=== PATIENT | female | born 1995 | race Caucasian/White ===

== ENCOUNTER 2019-10-19 13:09 | Emergency (ER) | payer OTHER, SELFPAY ==
[2019-10-19 13:20] VITALS: BP 122/71; PULSE 106; RESP 16; TEMP 36.8; O2SAT 99
--- NOTE | 2019-10-19 13:27 | ED.URI ---
HPI - URI/Sore Throat General Chief Complaint: Upper Respiratory Infection Stated Complaint: Cough/sore throat/sinus drainage Time Seen by Provider: 10/19/19 13:27 Source: patient and RN notes reviewed Mode of arrival: ambulatory Limitations: no limitations History of Present Illness HPI Narrative: 23-year-old female who presents to [facility] care with complaints of sore throat, nasal congestion and drainage, come cough with highest temperature of 99.6F. Patient states that she has no shortness of breath or any wheezing noted, lungs noted to be clear to auscultation with SAO2 99% on room air.Patient denies any known exposure to strep or any sick contact, denies any recent travel. Patient states that she has been taking Nyquil cold and flu for her symptoms. Patient reports that she did not get a flu shot this year. MD elicited complaint: cough, sore throat, rhinorrhea and nasal congestion Pertinent past history: other (sinus problems and bronchitis) Onset (ago): day(s) (2) Consistency: constant Severity: moderate Pain scale (0-10): 5 Description of mucous: clear Able to tolerate fluids by mouth: Yes Exacerbating factors: swallowing Relieving factors: nothing Associated symptoms: rhinorrhea, nasal congestion, sore throat and cough Treatments prior to arrival: other (nyquil cold and flu) Related Data Home Medications Medication Instructions Recorded Confirmed drospirenone-ethinyl estradiol 1 tablet PO DAILY 10/19/19 10/19/19 [Enriqueta] Allergies Allergy/AdvReac Type Severity Reaction Status Date / Time amoxicillin Allergy Unknown HIVES Verified 10/19/19 15:06 Review of Systems Review of Systems: Narrative: CONSTITUTIONAL: Reprts highest temperature of 99.6F no chills, or sweats. EYES: Denies visual changes, redness, or discharge. ENT: Positive rhinorrhea, congestion, sore throat, no otalgia. CARDIOVASCULAR: Denies chest pain, palpitations, or edema. RESPIRATORY:Positive cough no dyspnea. GASTROINTESTINAL: Denies abdominal pain, nausea, vomiting, or diarrhea. GENITOURINARY: Denies dysuria or hematuria. SKIN: Denies rash or itching. MUSCULOSKELETAL: Denies back pain, joint pain, or myalgia. NEUROLOGIC: Denies headache, numbness, or weakness. PSYCHIATRIC: Denies anxiety or depression. All systems reviewed & are unremarkable except as noted in HPI and below PMFSH Past Medical History Medical History (Updated 10/21/19 @ 15:25 by Stephanie Snowden NP) Bronchitis Fracture, ankle Sinus problem Surgical History Surgical History (Updated 10/19/19 @ 13:35 by Stephanie Snowden NP) S/P wisdom tooth extraction Family History Family History Other Carcinoma of colon Depression Family history of arthritis Family history of heart disease in male family member before age 55 Social History Social History (Updated 10/21/19 @ 15:20 by Stephanie Snowden NP) Smoking status: Never smoker Alcohol intake: current Living arrangements: with family Gender identity (if verbalized by the patient): Female Comments At time of signature, agree with nursing past medical, surgical, social history. There is no relevant family history pertinent to the presenting complaint Exam Narrative: Exam Narrative: GENERAL: Well-appearing, well-nourished, and in no acute distress. HEAD: Normocephalic, atraumatic. EYES: PERRLA AND EOMI intact no nystagmus no eye drainage or redness ENT: nares red with clear rhinorrhea no epistaxis. Mucous membranes moist.TM's normal with good light reflex, thraoat red with no lesions or exudates no tonsil enlargement NECK: Supple.no lymphadenopathy CHEST: Clear to auscultation. No respiratory distress.cough, SAO2 99% on room air HEART: Regular rate and rhythm. No murmur heard. Normal peripheral pulses. ABDOMEN: Soft, nontender, nondistended, normal active bowel sounds. EXTREMITIES: Normal range of motion. No edema. SKIN: Warm, dry, no rash. NEURO: N
== END 2019-10-19 13:50 | disposition home or self-care (01) ==
PROVIDERS: Emergency Provider Registered Nurse; PCP Family Medicine Sports Medicine
DX: J06.9 Acute upper respiratory infection, unspecified (principal); J02.9 Acute pharyngitis, unspecified
CPT/HCPCS: 87081; 87880; 99213; G0463

== ENCOUNTER 2021-05-08 09:09 | Emergency (ER) | payer SELFPAY ==
[2021-05-08 09:25] VITALS: BP 105/73; PULSE 91; RESP 16; TEMP 36.7; O2SAT 100
--- NOTE | 2021-05-08 09:44 | ED.URI ---
HPI - URI/Sore Throat General Chief Complaint: Upper Respiratory Infection Stated Complaint: Eye Problem/ Chest Congestion Time Seen by Provider: 05/08/21 09:29 Source: patient and RN notes reviewed Mode of arrival: ambulatory Limitations: no limitations History of Present Illness HPI Narrative: Patient presents today complaining of 5-day history of chills, sweats, cough, congestion. She also reports redness to the bilateral eyes since yesterday with crusting since this morning. Denies fever, nausea, vomiting, diarrhea. She has been taking some Mucus Relief cough medicine as well as Tylenol with relief. MD elicited complaint: cough and nasal congestion Related Data Home Medications Medication Instructions Recorded Confirmed multivitamin 1 tablet PO DAILY 03/21/20 Allergies Allergy/AdvReac Type Severity Reaction Status Date / Time amoxicillin Allergy Unknown HIVES Verified 03/21/20 11:27 Review of Systems Review of Systems: CONSTITUTIONAL: Denies body aches, fever, chills, or sweats. EYES: Denies visual changes. + Bilateral eye redness and crusting ENT: Denies rhinorrhea, sore throat, or otalgia.+ Congestion CARDIOVASCULAR: Denies chest pain, palpitations, or edema. RESPIRATORY: Denies dyspnea. + Cough GASTROINTESTINAL: Denies abdominal pain, nausea, vomiting, or diarrhea. GENITOURINARY: Denies dysuria or hematuria. SKIN: Denies rash, itching, or wounds. MUSCULOSKELETAL: Denies back pain, joint pain, or myalgia. NEUROLOGIC: Denies headache, numbness, tingling, or weakness. PSYCH: Denies depression or anxiety. [facility] Past Medical History Medical History (Updated 05/08/21 @ 09:50 by Irais Darling, FELIBERTO, LETTY) Bronchitis Depression Fracture, ankle Sinus problem Vaginal delivery Surgical History Surgical History S/P wisdom tooth extraction Family History Family History Other Carcinoma of colon Depression Family history of arthritis Family history of heart disease in male family member before age 55 Social History Social History Smoking status: Never smoker Alcohol intake: current Gender identity (if verbalized by the patient): Female Comments At time of signature, I have reviewed and agree with nursing past medical, surgical, social and family history unless otherwise noted. Please see nursing chart for further information. There is no relevant family history pertinent to the presenting complaint Exam Narrative: GENERAL: Mildly ill-appearing, well-nourished, and in no acute distress. HEAD: Normocephalic, atraumatic. EYES: EOMI. PERRL. Bilateral mildly injected conjunctiva, right greater than left. No drainage or increased watering. ENT: Mucous membranes pink and moist. Nares congested. No rhinorrhea. TMs normal bilaterally. Throat normal with small amount of postnasal drainage. Uvula midline. NECK: Normal AROM. Supple. No lymphadenopathy. CHEST: No respiratory distress. Clear to auscultation. HEART: Regular rate and rhythm. No murmur appreciated. Normal peripheral pulses. EXTREMITIES: Normal range of motion. No edema. SKIN: Warm, dry, no rash. Capillary refill normal. Normal skin turgor. NEURO: No focal deficits. Alert and oriented x3. Gait steady. PSYCH: Normal affect. No signs of depression or anxiety. Course Vital Signs Vital signs: Vital Signs Temperature 98.1 F 05/08/21 09:25 Pulse Rate 91 05/08/21 09:25 Respiratory Rate 16 05/08/21 09:25 Blood Pressure 105/73 05/08/21 09:25 Pulse Oximetry 100 05/08/21 09:25 Temperature 98.1 F 05/08/21 09:25 Pulse Rate 91 05/08/21 09:25 Respiratory Rate 16 05/08/21 09:25 Blood Pressure 105/73 05/08/21 09:25 Pulse Oximetry 100 05/08/21 09:25 Reviewed MDM - URI/Sore Throat Differential Diagnosis Differential diagn
== END 2021-05-08 09:59 | disposition home or self-care (01) ==
PROVIDERS: Emergency Provider Nurse Practitioner
DX: J06.9 Acute upper respiratory infection, unspecified (principal)
CPT/HCPCS: 87081; 87880; 99213; G0463

== ENCOUNTER 2024-05-01 15:51 | Outpatient (CLI) | payer OTHER, SELFPAY ==
--- NOTE | ~2024-05-01 | US_ITS ---
EXAMINATION: US OB <=14 wk fetus w TV DATE: 05/01/2024 16:11 INDICATION: Amenorrhea TECHNIQUE: Real-time pelvic ultrasound utilizing both a transvaginal and transabdominal probe was pe rformed. The interpreting radiologist was not present for the study. COMPARISON: None. FINDINGS: The uterus measures 9.8 x 5.9 x 6.1 cm. There is an intrauterine gestational sac. A yolk sac and fet al pole are identified. The crown rump length measures 1.6 cm, which correlates with an estimated ges tational age of 8 weeks and 0 days. heart motion is identified measuring 166 beats per minute ( bpm) by M-mode Doppler. The right ovary measures 2.6 x 1.4 x 1.2 cm. The left ovary measures 3.3 x 2.3 x 2.1 cm. Vascular zoe w identified at both ovaries on color Doppler. There is no free fluid in the pelvis. IMPRESSION: 1. Single living fetus with heart rate of 166 bpm. 2. Gestational age by ultrasound of 8 weeks 0 day(s) +/- 5 day(s) with ultrasound estimated date of delivery ([facility]) of 12/11/2024. Reviewed, dictated and finalized at location A. IMPRESSION: 1. Single living fetus with heart rate of 166 bpm. 2. Gestational age by ultrasound of 8 weeks 0 day(s) +/- 5 day(s) with ultraso und estimated date of delivery ([facility]) of 12/11/2024.
== END 2024-05-01 15:52 | disposition home or self-care (01) ==
LOC: MICIMG 15:51
PROVIDERS: PCP Nurse Practitioner Family; Visit Provider Nurse Practitioner Family
DX: N91.2 Amenorrhea, unspecified (principal)
CPT/HCPCS: 76801; 76817

== ENCOUNTER 2024-06-04 15:55 | Outpatient (CLI) | payer OTHER, SELFPAY ==
[2024-06-04 18:59] LABS: Add Urine Microscopic? NO; Appearance Urine Clear (Clear); Bilirubin Urine Negative (Negative); Blood Urine Negative (Negative); Color Urine Yellow (Yellow); Glucose Urine UA Negative (Negative); Ketones Urine Negative (Negative); Leukocyte Esterase Ur Negative LEU/UL (Negative); Nitrate Urine Negative (Negative); Protein Urine Negative (Negative); Urobilinogen Urine 0.2 mg/dL (<2.0)
[2024-06-04 19:05] LABS: Basophils Percent Auto 0.1 % (0.2-1.2); Eosinophils Absolute Auto 0.2 K/mm3 (0-0.3); Eosinophils Percent Auto 1.8 % (0-4.4); Hematocrit 34.4 % (37.0-47.0); Hemoglobin 11.4 g/dL (12.0-15.0); Immature Granulocyte Absolute 0.02 K/mm3 (0.00-0.031); Immature Granulocyte Percent A 0.2 % (0-0.5); Lymphocytes Absolute Auto 1.46 K/mm3 (0.9-3.2); Lymphocytes Percent Auto 16.3 % (18.3-44.2); Mean Corpuscular HGB Conc 33.1 g/dl (32-36); Mean Corpuscular Hemoglobin 28.9 pg (26-34); Mean Corpuscular Volume 87.3 fl (80-100); Mean Platelet Volume 9.7 fl (7.4-10.4); Monocytes Absolute Auto 0.3 K/mm3 (0.1-0.6); Monocytes Percent Auto 3.6 % (2.6-8.5); Platelet Count Result 238 k/mm3 (150-375); Red Blood Count 3.94 M/mm3 (4.2-5.4); Red Cell Distribution Width 13.1 % (11.5-14.5); White Blood Count 8.9 K/mm3 (4.5-10.0)
[2024-06-04 19:35] LABS: Hepatitis B Surface Antigen Negative (Negative)
[2024-06-04 19:46] LABS: HIV 1/2 Ab P24 Ag Result Negative (Negative)
[2024-06-04 19:51] LABS: Hepatitis C Virus Antibody Negative (Negative)
[2024-06-04 21:39] LABS: Rubella IgG Antibody > 110.0 IU/ML
[2024-06-05 06:01] LABS: Rapid Plasma Reagin Non-Reactive (NonReactive)
[2024-06-07 07:43] LABS: Hematocrit 36.1 % (35.0-45.0); Hemoglobin 11.4 g/dL (11.7-15.5); MCH 28.6 pg (27.0-33.0); MCV 90.7 fL (80.0-100.0); Red Blood Cell Count 3.98 Million/uL (3.80-5.10)
== END 2024-06-04 15:56 | disposition home or self-care (01) ==
LOC: ANHGOSHLAB 15:57
PROVIDERS: PCP Nurse Practitioner Family; Visit Provider Obstetrics & Gynecology
DX: Z34.90 Encounter for supervision of normal pregnancy, unspecified, unspecified trimester (principal)
CPT/HCPCS: 36415; 81003; 83021; 85025; 86592; 86703; 86762; 86787; 86803; 86850; 86900; 86901; 87086; 87340; G0432

== ENCOUNTER 2024-09-09 14:45 | Emergency (ER) | payer OTHER, SELFPAY ==
--- NOTE | 2024-09-09 14:51 | ED.URI ---
HPI - URI/Sore Throat General Chief Complaint: Upper Respiratory Infection Stated Complaint: Upper Respiratory Symptoms Source: patient and RN notes reviewed Mode of arrival: ambulatory Limitations: no limitations History of Present Illness HPI Narrative: 28 y/o female presented for c/o sinus pressure/congestion, cough, headache, body aches, fever/chills. onset 4 days, symptoms started with scratchy throat that is now improving. Taking cough syrup and Tylenol. Denies sob, wheezing, n/v/d. Pt is 27 weeks gestation; no concerns. MD elicited complaint: cough Related Data Home Medications ?Medication ?Instructions ?Recorded ?Confirmed ?Last Taken ?Type docosahexaenoic acid 200 mg mg PO 04/27/24 09/04/24 Unknown History capsule ( DHA) docusate sodium 100 mg capsule 100 mg PO DAILY 09/04/24 09/04/24 Unknown History (Colace) Allergies Allergy/AdvReac Type Severity Reaction Status Date / Time amoxicillin Allergy Mild HIVES Verified 09/09/24 14:48 polyethylene glycol 3350 Allergy Mild Hives Verified 09/09/24 14:48 (From Miralax) Review of Systems Review of Systems: per HPI [facility] Past Medical History Medical History Vaginal delivery Depression Fracture, ankle Sinus problem Bronchitis Surgical History Surgical History S/P wisdom tooth extraction Family History Family History Other Carcinoma of colon Depression Family history of arthritis Family history of heart disease in male family member before age 55 Social History Social History Smoking status: Never smoker Alcohol intake: current Living arrangements: with family Gender identity (if verbalized by the patient): Female Exam Narrative: GENERAL: mildly Ill-appearing, nontoxic no acute distress. EYES: conjunctivae clear ENT: Mucous membranes moist. TM pearly reyes with dull light reflex bilaterally; no tragal tenderness. Oropharynx erythematous without lesions or exudate, no drooling, no hoarseness, no trismus, uvula midline. No tripod positioning, muffled voice, soft palate or pharyngeal wall bulging NECK: Supple. No lymphadenopathy CHEST: Clear to auscultation, breath sounds equal. No wheezing, rhonchi, rales, or stridor. No respiratory distress, speaks in full sentences. HEART: Regular rate and rhythm. No murmur heard. ABD: Gravid. SKIN: Warm, dry NEURO: Alert and oriented x3. PSYCH: Normal mood and affect Course Course Emergency Course: Patient is aware of diagnosis, understands and agrees to treatment plan. Anticipatory guidance given. Patient agrees to follow-up as directed and is aware of reasons to seek care at the emergency department. Portions of this record may have been created with voice recognition software Level of Care: Express Care Visit Vital Signs Vital signs: reviewed MDM - URI/Sore Throat MDM Narrative Medical decision making narrative: POS flu. Discussed physical exam findings. Advised supportive measures and signs/symptoms to go to the ER. Pt is appropriate for outpt treatment and f/u. Differential Diagnosis Differential diagnosis: Likely upper respiratory infection, sinusitis and viral infection Discharge Plan Discharge Clinical Impression: Influenza Patient Disposition: Home, Self-Care Condition: Stable Instructions: Antibiotic Form, Influenza (ED) Additional Instructions: Influenza positive You should avoid crowds until you are fever free for 24 hours without the use of fever reducing medications, or the symptoms are improved Rest. Drink plenty of fluids. Tylenol every 8 hours as needed for pain/fever Flonase spray and Zyrtec (or Claritin/Heide) for sinus pressure/congestion over the counter Cough syrup may cause drowsiness; avoid driving or take it at night time. Follow up with your primary care provider as needed Go to the ER for worsening symptoms or concerns Patient Language: Mohawk Prescriptions: No Action DHA 200 mg capsule PO docusate sodium [Colace] 100 mg capsule 100 mg PO DAILY Follow-up/Referrals: Gisell,Darinel Calvin MD [Primary Care Provider] - Stand Alone Forms: Work/School Release IP
[2024-09-09 14:55] VITALS: BP 108/68; PULSE 123; RESP 16; TEMP 38.3; O2SAT 100
[2024-09-09 15:07] LABS: EDCOVIDSCREEN Negative (Negative)
[2024-09-09 15:08] LABS: EDINFLUASCREEN Positive (Negative); EDINFLUBSCREEN Negative (Negative)
== END 2024-09-09 15:03 | disposition home or self-care (01) ==
PROVIDERS: Emergency Provider Nurse Practitioner Family; PCP Family Medicine
DX: O98.512 Other viral diseases complicating pregnancy, second trimester (principal); J10.1 Influenza due to other identified influenza virus with other respiratory manifestations; Z3A.27 27 weeks gestation of pregnancy
CPT/HCPCS: 87426; 87804; 99212; G0463

== ENCOUNTER 2024-09-26 11:55 | Outpatient (CLI) | payer OTHER, SELFPAY ==
[2024-09-26 13:13] LABS: Basophils Percent Auto 0.2 % (0.2-1.2); Eosinophils Absolute Auto 0.2 K/mm3 (0-0.3); Eosinophils Percent Auto 1.3 % (0-4.4); Hemoglobin 10.3 g/dL (12.0-15.0); Immature Granulocyte Absolute 0.14 K/mm3 (0.00-0.031); Immature Granulocyte Percent A 1.2 % (0-0.5); Lymphocytes Absolute Auto 1.41 K/mm3 (0.9-3.2); Lymphocytes Percent Auto 11.7 % (18.3-44.2); Mean Corpuscular HGB Conc 33.2 g/dl (32-36); Mean Corpuscular Hemoglobin 28.9 pg (26-34); Mean Corpuscular Volume 87.1 fl (80-100); Mean Platelet Volume 8.1 fl (7.4-10.4); Monocytes Absolute Auto 0.4 K/mm3 (0.1-0.6); Monocytes Percent Auto 3.3 % (2.6-8.5); Neutrophils Absolute Auto 9.9 K/mm3 (1.3-6.7); Neutrophils Percent Auto 82.3 % (45.5-73.1); Platelet Count Result 369 k/mm3 (150-375); Red Blood Count 3.56 M/mm3 (4.2-5.4); Red Cell Distribution Width 13.2 % (11.5-14.5)
[2024-09-26 13:22] LABS: Glucose 1 Hour PP 50gm Dose 105 mg/dL
== END 2024-09-26 11:56 | disposition home or self-care (01) ==
LOC: ANHLAB 11:58
PROVIDERS: PCP Family Medicine; Visit Provider Nurse Practitioner Obstetrics & Gynecology
DX: Z34.90 Encounter for supervision of normal pregnancy, unspecified, unspecified trimester (principal)
CPT/HCPCS: 36415; 82947; 85025

== ENCOUNTER 2024-10-17 13:33 | Outpatient (CLI) | payer OTHER, SELFPAY ==
--- OUTSIDE RECORDS SUMMARY | 2024-10-17 13:36 | XMS_ITS | Clinical Summary ---
Author Organization [facility] Address [address] [place] [address] Care Team Providers Care Revenue Accounting Manager Name Role Phone Darinel Jameson MD Primary Care Provider [phone] Allergies Active Allergy Reactions Criticality Noted Date Comments Amoxicillin Hives 03/25/2016 Medications norethindrone-e thinyl estradiol (ORTHO-NOVUM 1-35 TAB, NORTREL 1-35 TAB) 1-35 MG-MCG Tablet Take 1 Tab by mouth daily. Active albuterol (PROVENTIL HFA, VENTOLIN HFA) 108 (90 BASE) MCG/ACT Aerosol Solution take 2 Puffs by inhalation every 4 hours as needed for Wheezing. Active predniSONE (DELTASONE) 50 MG Tablet Take 1 Tab by mouth daily. Use as directed. 5 Tab 0 6 Active cetirizine (ZYRTEC) 10 MG Tablet Take 1 Tab by mouth daily. 30 Tab 1 6 Active Social History Tobacco Use Types Packs/Day Years Used Date Smoking Tobacco: Never Alcohol Use Standard Drinks/Week Comments No 0 (1 standard drink = 0.6 oz pur e alcohol) Comments No Sex and Gender Information Value Date Recorded Sex Assigned at Not on file Legal Sex Female 9:23 PM CDT Gender Identity Not on file Sexual Orientation Not on file Last Filed Vital Signs Vital Sign Reading Time Taken Comments Blood Pressure 119/79 03/25/2016 9:29 PM CDT Pulse 84 03/25/2016 9:29 PM CDT Temperature 36.2 C (97.1 F) 03/25/2016 9:29 PM CDT Respiratory Rate 16 03/25/2016 9:29 PM CDT Oxygen Saturation 99% 03/25/2016 9:29 PM CDT Inhaled Oxygen Concentration - - Weight 52.6 kg (116 lb) 03/25/2016 9:29 PM CDT Height 165.1 cm (5' 5 ) 03/25/2016 9:29 PM CDT Body Mass Index 19.3 03/25/2016 9:29 PM CDT Plan of Treatment Health Maintenance Due Date Last Done Comments Hepatitis C Virus (HCV) Screening 1993 TdaP Immunization 1993 Hepatitis B Immunization (1 of 3 - 19+ 3-dose series) 2012 Pap Smear 2014 Cervical Cancer Screening (CCS) 10/25/2023 HPV/Cotest 10/25/2023 Influenza Immunization (#1) 2024 12/0 09/2018, 06/08/2018 SARS-COV-2 Immunization ( season) 2024 04/30/2021, 04/06/2021 Respiratory Syncytial Virus (RSV) Immunization (Adult) (1 - 1-dose 75+ series) 2068 Meningococcal Immunization (ACWY) Aged Out No longer eligible b ased on patient's age to complete this topic Pneumococcal Immunization Combined Aged Out No longer eligible b ased on patient's age to complete this topic Rotavirus Immunization Aged Out No lo nger eligible based on patient's age to complete this topic Care Teams Revenue Accounting Manager Relationship Specialty Start Date End Date Darinel Jameson MD [address] [place] [address] PCP - General Acid Painter 03/25/16
--- OUTSIDE RECORDS SUMMARY | 2024-10-17 13:36 | XMS_ITS | Continuity of Care Document ---
Author Organization [facility] Address [address] [place] [address] [facility] [address] [place] [address] Phone Care Team Providers Care Mannequin Refinisher Name Role Phone Miriam Heller Unavailable Unavailable Advance Directives Directive Yes / No Effective Date File Name No Information Encounters Encounter Description Practice Location Reason(s) For Visit Diagnoses Date Provider Providers Copied on Encounter [facility], [address] [place] [address] [address] [place], [place], [id number], [place] tel:[phone] [facility] No Information Dec-0 7-200 4 Pina Pineda. [address] , [address], [place], [address], [place]. tel:[phone] Family History Family Member Type Diagnosis Age At Onset No Information Payers Payer name Insurance type Covered republican ID Authoriza tion(s) Medicaid [facility] [id number] Social History Type Description Quantity Date Captured Comments Sex Female Smoking Status No Information Chief Complaint And Reason For Visit No Information Reason For Referral Reason For Referral No Information History Of Present Illness Encounter Date Complaint History Of Prese nt Illness No Information Functional Status Date Functional Assessmen t No Information Instructions Date Instruction Additional Infor mation No Information Assessments Type Assessment Date No Information Patient Care Teams Name Effective Dates (start - stop) Status Members No Information
--- OUTSIDE RECORDS SUMMARY | 2024-10-17 13:36 | XMS_ITS | Continuity of Care Document ---
Author Organization [facility] Address [address] [place] [address] Phone Care Team Providers Care Pest Locator Name Role Phone Unavailable Unavailable Unavailable Advance Directives Directive Yes / No Effective Date File Name No Information Encounters Encounter Description Practice Location Reason(s) For Visit Diagnoses Date Provider Providers Copied on Encounter [facility], [address] [facility], [place], [place], [id number], tel:[phone] [facility] OBS/OUTPAT IENT No Information No Information Referring Provider: JAMESON CAPELLAN, [address] [place] [address],[place], [address]. tel:[phone] Family History Family Member Type Diagnosis Age At Onset No Information Payers Payer name Insurance type Covered green party ID Authoriza tion(s) No Information Social History Type Description Quantity Date Captured Comments Sex Female Smoking Status No Information Chief Complaint And Reason For Visit No Information History Of Present Illness Encounter Date Complaint History Of Prese nt Illness No Information Instructions Date Instruction Additional Infor mation No Information Assessments Type Assessment Date No Information
--- OUTSIDE RECORDS SUMMARY | 2024-10-17 13:36 | XMS_ITS | Clinical Summary ---
Author Organization [facility] Address [address] [facility] [place] [address] Care Team Providers Care Inspector Final Assembly Conveyor Line Name Role Phone Unavailable Primary Care Provider Unavailabl e Source Comments [facility],non-owned Affiliates and Associated Physician Practices is amultiple site organization consisting of ambulatory clinics and hospital sitesin [place], [place], [place] and [place]. This disclosure is being madepursuant to the Care Everywhere program and may not contain all information available regarding this patient. Last updated 18.[facility] Allergies Active Allergy Reactions Criticality Noted Date Comments Amoxicillin Urticaria Medium 12/06/2016 Lactose 12/06/2016 Medications * Be aware that medications may not be up to date on this document. Alwaysverify current medications with the patient. Medication Sig Dispensed Refills Start Date End Date Status Cetirizine HCl (ZYRTEC PO) Active Fluticasone Propionate (FLONASE NA) Active Immunizations Name Administration Dates Next Due INFLUENZA VACCINE, QUADR. (F LUZONE; FLULAVAL; FLUARIX; AFLURIA QUADRIVALENT; 6MO+), 0.5 ML (IIV4) 06/30/2019 Social History Tobacco Use Types Packs/Day Years Used Date Smoking Tobacco: Never Sex and Gender Information Value Date Recorded Sex Assigned at Not on file Gender Identity Not on file Sexual Orientation Not on file Last Filed Vital Signs Vital Sign Reading Time Taken Comments Blood Pressure 112/72 12/06/2016 2:03 PM CDT Pulse 98 12/06/2016 2:03 PM CDT Temperature - - Respiratory Rate 18 12/06/2016 2:03 PM CDT Oxygen Saturation 97% 12/06/2016 2:03 PM CDT Inhaled Oxygen Concentration - - Weight 52.6 kg (116 lb) 12/06/2016 2:03 PM CDT Height 165.1 cm (5' 5 ) 12/06/2016 2:03 PM CDT Body Mass Index 19.3 12/06/2016 2:03 PM CDT Plan of Treatment Health Maintenance Due Date Last Done Comments PAP SMEAR 1993 HIV SCREENING 2008 HEPATITIS C SCREENING 10/20/2011 DTAP/TDAP/TD VACCINES (1 - Tdap) 2012 HEPATITIS B VACCINE (1 of 3 - 19+ 3-dose series) 2012 COVID-19 VACCINE (1 - 2023-2 5 season) 2024 INFLUENZA VACCINE (#1) 2024 06/30/2019 DEPRESSION SCREENING 07/29/2024 ZOSTER VACCINE (1 of 2) 10/25/2043 HIB VACCINE Aged Out No longer eligi ble based on patient's age to complete this topic HPV VACCINE Aged Out No longer eligi ble based on patient's age to complete this topic MENINGOCOCCAL (Group B) VACC INE SHARED DECISION-MAKING Aged Out No longer eligibl e based on patient's age to complete this topic MENINGOCOCCAL GROUPS A/C/Y/W VACCINE Aged Out No longer eligible b ased on patient's age to complete this topic PNEUMOCOCCAL VACCINE Aged Out No long er eligible based on patient's age to complete this topic Advance Directives Documents on File Type Date Recorded Patient Bell Cleaner Expl anation Adv Directive/Living Will/POA 12/06/2016
--- OUTSIDE RECORDS SUMMARY | 2024-10-17 13:36 | XMS_ITS | Clinical Summary ---
Author Organization [facility] - 2022 Address [address] [place] [phone] Phone Care Team Providers Care [employer] Division Manager Name Role Phone Darinel Jameson MD Primary Care Provider [phone] Encounters Date Type Department Care Team Description 10/03/2024 External Device Data STL ABSTRACTION Provider, Abstract 10/02/2024 External Device Data STL ABSTRACTION Provider, Abstract 09/29/2024 External Device Data STL ABSTRACTION Provider, Abstract 09/15/2024 External Device Data STL ABSTRACTION Provider, Abstract 08/20/2024 External Device Data STL ABSTRACTION Provider, Abstract 08/19/2024 External Device Data STL ABSTRACTION Provider, Abstract 08/18/2024 External Device Data STL ABSTRACTION Provider, Abstract 08/11/2024 External Device Data STL ABSTRACTION Provider, Abstract 07/28/2024 External Device Data STL ABSTRACTION Provider, Abstract 07/27/2024 9:49 AM LOW PRESSURE KETTLE OPERATOR - 07/27/2024 11:59 PM LOW PRESSURE KETTLE OPERATOR Hospital Encounter [facility] [address] [place] [phone] Jameson Zendejas MD Discharge Disposition: Home or Self Care from Last 3 Months Social History Tobacco Use Types Packs/Day Years Used Date Smoking Tobacco: Never Assessed Comments Unknown Sex and Gender Information Value Date Recorded Sex Assigned at Female 07/27/2024 9:36 AM LOW PRESSURE KETTLE OPERATOR Legal Sex Female 9:27 AM CDT Gender Identity Female 07/27/2024 9:36 AM LOW PRESSURE KETTLE OPERATOR Sexual Orientation Straight 07/27/2024 9: 36 AM LOW PRESSURE KETTLE OPERATOR Plan of Treatment Upcoming Encounters Date Type Department Care Team (Late st Contact Info) Description 10/29/2024 3:45 PM CDT Appointment [facility] 20[address] [place] [address] Jameson Zendejas MD [address] [place] [address] Health Maintenance Due Date Last Done Comments DTAP/TDAP/TD VACCINES (1 - Tdap) 2012 HEPATITIS B VACCINES (1 of 3 - 19+ 3-dose series) 2012 PAP SMEAR 2014 CERVICAL CANCER SCREENING 10/25/2023 HPV/Cotest 10/25/2023 PAP SMEAR 10/25/2023 INFLUENZA VACCINE (#1) 2024 06/30/2019 Preventative Visit- Commercial 07/29/2024 HPV VACCINES Aged Out No longer eligi ble based on patient's age to complete this topic Procedures Procedure Name Priority Date/Time Associated Diagnosis Comments US OB 14+ WKS SINGLE GEST Routine 07/27/2024 10:35 AM LOW PRESSURE KETTLE OPERATOR Encounter for anatomic survey from Last 3 Months Results * US OB 14+ WKS SINGLE GEST (07/27/2024 10:35 AM LOW PRESSURE KETTLE OPERATOR) Anatomical Region Laterality Modality Pelvis Ultrasound 07/27/2024 10:4 1 AM LOW PRESSURE KETTLE OPERATOR Narrative 07/27/2024 10:54 AM LOW PRESSURE KETTLE OPERATOR STL BASIC ----- Pat. Name: TRACY DINH Study Date: 07/27/2024 10:41am Pat. NO: [id number] Referring MD: JAMESON ZENDEJAS MD Site: [facility] Gang Punch Operator: Sarina Hwang RDMS : 1995 Age: 28 ----- INDICATION ----- Anatomy Survey CODING ----- Diagnoses Z3A.20: Weeks of gestation Z36.3: Encounter for screening for malformations Procedures 98290: Ultrasound, uterus, real time with image documentation, and maternal evaluation, after first trimester (> or = 14 weeks 0 days), transabdominal approach; single or first gestation HISTORY ----- OB History 2. Para 1 T1L1 MATERNAL ASSESSMENT ----- Physical Exam Weight 56 kg. BMI 20.63 kg/m METHOD ----- Transabdominal ultrasound examination ----- Joseph . Number of fetuses: 1 DATING ----- Cycle: regular cycle Method of dating: based on stated REMINGTON GA by prior assessment 20 w + 4 d REMINGTON by prior assessment: 12/10/2024 Ultrasound examination on: 07/27/2024 GA by U/S based upon: AC, BPD, EFW, Femur, HC GA by U/S 20 w + 1 d REMINGTON by U/S: 12/13/2024 Assigned: based on stated REMINGTON, selected on 07/27/2024 Assigned GA 20 w + 4 d Assigned REMINGTON: 12/10/2024 BIOMETRY ----- BPD 46.3 mm 20w 0d 26% Hadlock OFD 61.5 mm 21w 1d 70% Herbert HC 172.9 mm 19w 6d 13% Hadlock Cerebellum tr 21.3 mm 20w 6d 54% Gonzalez Nuchal fold 3.7 mm AC 151.4 mm 20w 3d 37% Hadlock Femur 33.3 mm 20w 3d 36% Hadlock Humerus 30.2 mm 20w 0d 27% Herbert HC / AC 1.14 32% Nicolaides Weight Calculation: EFW 347 g 20w 2d 32% Hadlock EFW (lb,oz) 0 lb 12 oz EFW by Hadlock ([id number]) Head / Face / Neck Biometry: Author Agent 4.7 mm CM 5.7 mm 68% Nicolaides Outer IOD 29.6 mm 19w 1d 7% Herbert Extremities / Bony Struc Biometry: FL / BPD 0.72 56% Hadlock FL / HC 0.19 52% Hadlock FL / AC 0.22 48% Hadlock GENERAL EVALUATION ----- Cardiac activity present. FHR 138 bpm. movements: visualized. Presentation: cephalic Placenta: Placental site: anterior Umbilical cord: Cord vessels: 3 vessel cord. Insertion site: placental insertion: normal Amniotic fluid: Amount of AF: normal amount. MVP 5.3 cm ANATOMY ----- The following structures appear normal: Head / Neck Cranium. Lateral ventricles. Choroid plexus. Midline falx. Cavum septi pellucidi. Cerebellum. Cisterna magna. Face Lips. Profile. Nose. Palate. Orbits. Heart / Thorax 4-chamber view. RVOT view. LVOT view. 3-vessel view. 1-lwwbay-lqphdlm view. Situs. Aortic arch view. Ductal arch view. Superior vena cava. Inferior vena cava. High short axis view. Cardiac rhythm. Diaphragm. Abdomen Abdominal wall. Stomach. Kidneys. Bladder. Spine Cervical spine. Thoracic spine. Lumbar spine. Sacral spine. Extremities / Arms. Right hand. Left hand. Legs. Right foot. Left foot. Skeleton The following structures could not be adequately visualized: Head / Neck Nuchal fold. MATERNAL STRUCTURES ----- Cervix Visualized Approach - Transabdominal: Cervical length 45.3 mm Right Ovary Suboptimal Left Ovary Suboptimal GROWTH OVERVIEW ----- Exam date GA BPD (mm) HC (mm) AC (mm) FL (mm) HL (mm) EFW (g) 07/27/2024 20w 4d 46.3 26% 172.9 13% 151.4 37% 33.3 36% 30.2 27% 347 32% COMMENT ----- Patient's name and date of were confirmed by the air reduction equipment operator prior to the exam IMPRESSION ----- - Intrauterine at 20w 4d based on the reported dates. - The estimated weight is 347 g which is at the 32% percentile. - The visualized anatomy appears unremarkable to the extent of ultrasound views. - The nuchal fold is suboptimally visualized. - The placenta is anterior without concern for previa or low-lying placenta. - Amniotic fluid amount is normal for gestational age. (MVP of 5.3 cm) - Ovaries not visualized. - Normal cervical length. An anatomic survey cannot rule out all abnormalities, including structural, chromosome or genetic. Further sonograms as clinically indicated. Procedure Note Tere Barr MD - 07/27/2024 STL BASIC ----- Didi. Name:Sarah DINH Date:07/27/2024 10:41am Pat. NO: [id number] MD:JAMESON ZENDEJAS [facility]Sarina Hwang RDMS :1995Age:28 ----- INDICATION ----- Anatomy Survey CODING ----- Diagnoses Z3A.20: Weeks of gestation Z36.3: Encounter for [facility] Procedures [id number]: Ultrasound, uterus, real time withimage documentation, and maternal evaluation, after first trimester (> or = 14 weeks 0 days),transabdominal approach; single or first gestation HISTORY ----- OB History 2. Para 1 T1L1 MATERNAL ASSESSMENT ----- Physical Exam Weight 56 kg. BMI 20.63 kg/m METHOD ----- Transabdominal ultrasound examination ----- Joseph . Number of fetuses: 1 DATING ----- Cycle:regular cycle Method of dating:based on stated REMINGTON GA by prior [id number] w + 4 d REMINGTON by prior assessment:12/10/2024 Ultrasound examination on:07/27/2024 GA by U/S based upon:AC, BPD, EFW, Femur, HC GA by U/S20 w + 1 d REMINGTON by U/S:12/13/2024 Assigned:based on stated REMINGTON, selected on 07/27/2024 Assigned GA20 w + 4 d Assigned REMINGTON:12/10/2024 BIOMETRY ----- BPD 46.3 mm 20w 0d26% Hadlock OFD 61.5 mm 21w 1d70% Herbert HC 172.9 mm 19w 6d13% Hadlock Cerebellum tr 21.3 mm 20w 6d54% Gonzalez Nuchal fold 3.7 mm AC 151.4 mm 20w 3d37% Hadlock Femur 33.3 mm 20w 3d36% Hadlock Humerus 30.2 mm 20w 0d27% Herbert HC / AC 1.14 32%Nicolaides Weight Calculation: EFW 347 g 20w 2d 32%Hadlock EFW (lb,oz) 0 lb 12 oz EFW by Hadlock ([id number]-FL) Head / Face / Neck Biometry: Author Agent 4.7 mm CM 5.7 mm 68%Juventinoides Outer IOD 29.6 mm 19w 1d 7%Herbert Extremities / Bony Struc Biometry: FL / BPD 0.72 56%Hadlock FL / HC 0.19 52%Hadlock FL / AC 0.22 48%Hadlock GENERAL EVALUATION ----- Cardiac activity present. FHR 138 bpm. movements: visualized.Presentation: cephalic Placenta: Placental site: anterior Umbilical cord: Cord vessels: 3 vessel cord. Insertion site: placentalinsertion: normal Amniotic fluid: Amount of AF: normal amount. MVP 5.3 cm ANATOMY ----- The following structures appear normal: Head / Neck Cranium. Lateral ventricles. Choroid plexus.Midline falx. Cavum septi pellucidi. Cerebellum. Cisterna magna. Face Lips. Profile. Nose. Palate. Orbits. Heart / Thorax 4-chamber view. RVOT view. LVOT view. 3-vesselview. 4-xisyro-aqozahd view. Situs. Aortic arch view. Ductal arch view. Superior vena cava. Inferiorvena cava. High short axis view. Cardiac rhythm. Diaphragm. Abdomen Abdominal wall. Stomach. Kidneys. Bladder. Spine Cervical spine. Thoracic spine. Lumbar spine.Sacral spine. Extremities / Arms. Right hand. Left hand. Legs. Right foot.Left foot. Skeleton The following structures could not be adequately visualized: Head / Neck Nuchal fold. MATERNAL STRUCTURES ----- Cervix Visualized Approach - Transabdominal: Cervical length 45.3mm Right Ovary Suboptimal Left Ovary Suboptimal GROWTH OVERVIEW ----- Exam date GA BPD (mm) HC (mm) AC (mm) FL(mm) HL (mm) EFW (g) 07/27/2024 20w 4d 46.3 26% 172.9 13% 151.4 37%33.3 36% 30.2 27% 347 32% COMMENT ----- Patient's name and date of were confirmed by the air reduction equipment operator priorto the exam IMPRESSION ----- - Intrauterine at 20w 4d based on the reported dates. - The estimated weight is 347 g which is at the 32% percentile. - The visualized anatomy appears unremarkable to the extent ofultrasound views. - The nuchal fold is suboptimally visualized. - The placenta is anterior without concern for previa or low-lyingplacenta. - Amniotic fluid amount is normal for gestational age. (MVP of 5.3 cm) - Ovaries not visualized. - Normal cervical length. An anatomic survey cannot rule out all abnormalities, includingstructural, chromosome or genetic. Further sonograms as clinically indicated. us Jameson Zendejas MD ORDERABLES Final Result from Last 3 Months Insurance Mention Mobile PPO Care Teams [employer] Division Manager Relationship Specialty Start Date End Date Darinel Jameson MD [address] [place] [phone] PCP - General Family Practice 03/01/14
[2024-10-17 13:59] LABS: Hematocrit 33.1 % (37.0-47.0); Mean Corpuscular HGB Conc 33.2 g/dl (32-36); Mean Corpuscular Hemoglobin 28.6 pg (26-34); Mean Platelet Volume 8.9 fl (7.4-10.4); Platelet Count Result 213 k/mm3 (150-375); Red Blood Count 3.85 M/mm3 (4.2-5.4); Red Cell Distribution Width 14.4 % (11.5-14.5); White Blood Count 10.9 K/mm3 (4.5-10.0)
[2024-10-17 14:50] LABS: HIV 1/2 Ab P24 Ag Result Negative (Negative)
[2024-10-17 14:59] LABS: Syphilis IgG/IgM Antibody Negative (Negative)
== END 2024-10-17 13:34 | disposition home or self-care (01) ==
LOC: ANHLAB 13:35
PROVIDERS: PCP Family Medicine; Visit Provider Nurse Practitioner Obstetrics & Gynecology
DX: Z34.90 Encounter for supervision of normal pregnancy, unspecified, unspecified trimester (principal)
CPT/HCPCS: 36415; 85027; 86592; 86593; 86703; G0432

== ENCOUNTER 2024-11-25 15:33 | Outpatient (RCR) | payer OTHER, SELFPAY ==
[2024-11-25 17:04] VITALS: BP 110/71; PULSE 88
== END 2024-12-21 08:28 | disposition home or self-care (01) ==
LOC: ANHOBOP 15:33
PROVIDERS: PCP Family Medicine; Visit Provider Obstetrics & Gynecology
DX: O36.8330 Maternal care for abnormalities of the fetal heart rate or rhythm, third trimester, not applicable or unspecified (principal); Z3A.37 37 weeks gestation of pregnancy
CPT/HCPCS: 59025

== ENCOUNTER 2024-11-25 18:06 | Observation (INO) | payer OTHER, SELFPAY ==
[2024-11-25 20:00] VITALS: TEMP 36.8
--- OUTSIDE RECORDS SUMMARY | 2024-11-25 20:20 | XMS_ITS | Clinical Summary ---
Author Organization [facility] Address [address] [facility] [place] [address] Care Team Providers Care Lab Aide Name Role Phone Unavailable Primary Care Provider Unavailabl e Source Comments [facility],non-owned Affiliates and Associated Physician Practices is amultiple site organization consisting of ambulatory clinics and hospital sitesin [place], [place], [place] and [place]. This disclosure is being madepursuant to the Care Everywhere program and may not contain all information available regarding this patient. Last updated 18.[facility] Allergies Active Allergy Reactions Criticality Noted Date Comments Amoxicillin Urticaria Medium 12/06/2016 Lactose 12/06/2016 Medications * Be aware that medications may not be up to date on this document. Alwaysverify current medications with the patient. Cetirizine HCl (ZYRTEC PO) Active Fluticasone Propionate (FLONASE NA) Active Immunizations Immunization Administration Dates Next Due INFLUENZA VACCINE, QUADR. (F LUZONE; FLULAVAL; FLUARIX; AFLURIA QUADRIVALENT; 6MO+), 0.5 ML (IIV4) 06/30/2019 Social History Tobacco Use Types Packs/Day Years Used Date Smoking Tobacco: Never Comments No Sex and Gender Information Value Date Recorded Sex Assigned at Not on file Legal Sex Female 12:28 PM CDT Gender Identity Not on file [...] Health Maintenance Due Date Last Done Comments HIV SCREENING 2008 HEPATITIS C SCREENING 10/20/2011 DTAP/TDAP/TD VACCINES (1 - Tdap) 2012 HEPATITIS B VACCINE (1 of 3 - 19+ 3-dose series) 2012 COVID-19 VACCINE (1 - 2023-2 5 season) 2024 DEPRESSION SCREENING 07/29/2024 INFLUENZA VACCINE (Season Ended) 2025 06/30/20 19 ZOSTER VACCINE (1 of 2) 10/25/2043 HIB [...] on patient's age to complete this topic Insurance COUNT INCLUDES THE [facility] Advance Directives Documents on File Type Date Recorded Patient Video Game Repair Technician Expl anation Adv Directive/Living Will/POA 12/06/2016
--- OUTSIDE RECORDS SUMMARY | 2024-11-25 20:20 | XMS_ITS | Clinical Summary ---
Author Organization [facility] Address [address] [place] [address] Care Team Providers Care Semiconductor Wafers Etcher Stripper Name Role Phone Darinel Jameson MD Primary Care Provider [phone] Allergies Active Allergy Reactions Criticality Noted Date [...] age to complete this topic Care Teams Semiconductor Wafers Etcher Stripper Relationship Specialty Start Date End Date Darinel Jameson MD [address] [place] [address] PCP - General Gang Supervisor 03/25/16
--- OUTSIDE RECORDS SUMMARY | 2024-11-25 20:20 | XMS_ITS | Continuity of Care Document ---
Author Organization [facility] Address [address] [place] [address] [address] [facility] [address] [place] [address] Phone Care Team Providers Care Service Desk Lead Name Role Phone Miriam Heller Unavailable Unavailable Advance Directives Directive Yes / No Effective Date File Name No Information Encounters Encounter Description Practice Location Reason(s) For Visit Diagnoses Date Provider Providers Copied on Encounter [facility], [address] [place] [address] [address], [place], [place], [id number], [place] tel:[phone] [facility] No Information Dec-0 7-200 4 Pina Pineda. [address] [facility] [address] [place] , [address], [place], [address], [place]. tel:[phone] Family History Family Member Type Diagnosis Age At Onset No Information Payers Payer name Insurance type Covered libertarian ID Authoriza tion(s) Medicaid [facility] [id number] Social History Type Description Quantity Date Captured [...]
--- OUTSIDE RECORDS SUMMARY | 2024-11-25 20:20 | XMS_ITS | Clinical Summary ---
Author Organization [facility] - [address] [address] Phone Care Team Providers Care Cerner Analyst Name Role Phone Darinel Jameson MD Primary Care Provider [phone] Encounters Date Type Department Care Team Description 11/16/2024 3:29 PM CDT - 11/16/2024 11:59 PM CDT Hospital Encounter [facility] Jared Aldana [address] [place] [phone] Mateus Garcia MD Discharge Disposition: Home or Self Care 10/29/2024 3:33 PM CDT - 10/29/2024 11:59 PM CDT Hospital Encounter [facility] Jared Aldana [address] [place] [phone] Art Zendejas MD Discharge Disposition: Home or Self Care 10/27/2024 External Device Data STL ABSTRACTION Provider, Abstract 10/03/2024 External Device Data STL ABSTRACTION Provider, Abstract 10/02/2024 External Device Data STL ABSTRACTION Provider, Abstract 09/29/2024 External Device Data STL ABSTRACTION Provider, Abstract 09/15/2024 External Device Data STL ABSTRACTION Provider, Abstract from Last 3 Months Social History Tobacco Use Types Packs/Day Years Used Date Smoking Tobacco: Never Assessed Comments Unknown Sex and Gender Information Value Date Recorded Sex Assigned at Female 07/27/2024 9:36 AM CAMPUS AIDE Legal Sex Female 9:27 AM CDT Gender Identity Female 07/27/2024 9:36 AM CAMPUS AIDE Sexual Orientation Straight 07/27/2024 9: 36 AM CAMPUS AIDE Plan of Treatment Health Maintenance Due Date Last Done Comments DTAP/TDAP/TD VACCINES (1 - Tdap) 2012 HEPATITIS B VACCINES (1 of 3 - 19+ 3-dose series) 2012 HPV/Cotest (21-29) 2014 CERVICAL CANCER SCREENING 10/25/2023 HPV/Cotest (30-65) 10/25/2023 PAP SMEAR 10/25/2023 INFLUENZA VACCINE (#1) 2024 06/30/2019 HPV VACCINES Aged Out No longer eligi ble based on patient's age to complete this topic Procedures Procedure Name Priority Date/Time Associated Diagnosis Comments US OB FOLLOW UP PER FETUS Routine 11/16/2024 4:03 PM CDT Small for gestational age (SGA) US OB FOLLOW UP PER FETUS Routine 10/29/2024 4:14 PM CDT Small for gestational age (SGA) from Last 3 Months Results * US OB FOLLOW UP PER FETUS (11/16/2024 4:03 PM CDT) Only the most recent of2 resultswithin the time period is included. Anatomical Region Laterality Modality Pelvis Ultrasound 11/16/2024 3:36 PM CDT Narrative 11/17/2024 9:08 AM CDT STL FOLLOW UP ----- Pat. Name: TRACY DINH Study Date: 11/16/2024 3:36pm Pat. NO: [id number] Referring MD: ART ZENDEJAS MD Site: [facility] Porter: Argenis Palmer RDMS : 1995 Age: 29 ----- INDICATION ----- Screening Follow-Up CODING ----- Diagnoses Z3A.36: Weeks of gestation Z36.2: Encounter for other screening follow-up Procedures [id number]: Ultrasound, uterus, real time with image documentation, follow up, transabdominal approach per fetus HISTORY ----- OB History 2. Para 1 T1L1 METHOD ----- Transabdominal ultrasound examination ----- Joseph . Number of fetuses: 1 DATING ----- Cycle: regular cycle GA by prior assessment 36 w + 4 d REMINGTON by prior assessment: 12/10/2024 Ultrasound examination on: 11/16/2024 GA by U/S based upon: AC, BPD, EFW, Femur, HC GA by U/S 35 w + 1 d REMINGTON by U/S: 12/20/2024 Method of dating: Restore dating from previous exam Assigned: based on stated REMINGTON, selected on 07/27/2024 Assigned GA 36 w + 4 d Assigned REMINGTON: 12/10/2024 BIOMETRY ----- BPD 86.4 mm 34w 6d 17% Hadlock OFD 114.8 mm 39w 6d 86% Herbert HC 322.2 mm 36w 3d 19% Hadlock AC 309.8 mm 34w 6d 18% Hadlock Femur 67.3 mm 34w 4d 8% Hadlock HC / AC 1.04 64% Nicolaides Weight Calculation: EFW 2,564 g 34w 6d 17% Hadlock EFW (lb,oz) 5 lb 10 oz EFW by Hadlock ([id number]) Extremities / Bony Struc Biometry: FL / BPD 0.78 FL / HC 0.21 FL / AC 0.22 GENERAL EVALUATION ----- Cardiac activity present. FHR 140 bpm. movements: present. Presentation: cephalic Placenta: Placental site: anterior Umbilical cord: Cord vessels: 3 vessel cord. Insertion site: placental insertion: normal Amniotic fluid: Amount of AF: normal amount. MVP 5.5 cm. ELKIN 12.2 cm. Q1 2.8 cm, Q2 2.4 cm, Q3 5.5 cm, Q4 1.5 cm ANATOMY ----- The following structures appear normal: Head / Neck Cranium. Lateral ventricles. Choroid plexus. Midline falx. Cavum septi pellucidi. Cerebellum. Cisterna magna. Heart / Thorax Diaphragm. Abdomen Stomach. Kidneys. Bladder. GROWTH OVERVIEW ----- Exam date GA BPD (mm) HC (mm) AC (mm) FL (mm) HL (mm) EFW (g) 07/27/2024 20w 4d 46.3 26% 172.9 13% 151.4 37% 33.3 36% 30.2 27% 347 32% 10/29/2024 34w 0d 81.8 17% 302.5 10% 284.5 14% 62.2 6% 1,998 11% 11/16/2024 36w 4d 86.4 17% 322.2 19% 309.8 18% 67.3 8% 2,564 17% COMMENT ----- Patient's name and date of were verified by the commissioning specialist prior to the exam IMPRESSION ----- Viable at 36 weeks gestation. A follow-up ultrasound was scheduled to assess growth Cephalic presentation Normal interval growth Estimated weight is at the 17th percentile with abdominal circumference at the 18th percentile Amniotic fluid volume is normal Anterior placenta with normal placental cord insertion appreciated; placenta is not low-lying No follow-up ultrasounds recommended at this time ADDENDUM ----- RETRIGGER Procedure Note Francisco Negron MD - 11/17/2024 STL FOLLOW UP ----- Pat. Name:Sarah DINH Date:11/16/2024 3:36pm Pat. NO: [id number] :ART ZENDEJAS MD [facility]Argenis Palmer RDMS :1995Age:29 ----- INDICATION ----- Screening Follow-Up CODING ----- Diagnoses Z3A.36: Weeks of gestation Z36.2: Encounter for other screeningfollow-up Procedures [id number]: Ultrasound, uterus, real time withimage documentation, follow up, transabdominal approach per fetus HISTORY ----- OB History 2. Para 1 T1L1 METHOD ----- Transabdominal ultrasound examination ----- Joseph . Number of fetuses: 1 DATING ----- Cycle:regular cycle GA by prior [id number] w + 4 d REMINGTON by prior assessment:12/10/2024 Ultrasound examination on:11/16/2024 GA by U/S based upon:AC, BPD, EFW, Femur, HC GA by U/S35 w + 1 d REMINGTON by U/S:12/20/2024 Method of dating:Restore dating from previous exam Assigned:based on stated REMINGTON, selected on 07/27/2024 Assigned GA36 w + 4 d Assigned REMINGTON:12/10/2024 BIOMETRY ----- BPD 86.4 mm 34w 6d 17%Hadlock OFD 114.8 mm 39w 6d 86%Herbert HC 322.2 mm 36w 3d 19%Hadlock AC 309.8 mm 34w 6d 18%Hadlock Femur 67.3 mm 34w 4d 8%Hadlock HC / AC 1.04 64%Nicolaides Weight Calculation: EFW 2,564 g 34w 6d17% Hadlock EFW (lb,oz) 5 lb 10 oz EFW by Hadlock ([id number]) Extremities / Bony Struc Biometry: FL / BPD 0.78 FL / HC 0.21 FL / AC 0.22 GENERAL EVALUATION ----- Cardiac activity present. FHR 140 bpm. movements: present.Presentation: cephalic Placenta: Placental site: anterior Umbilical cord: Cord vessels: 3 vessel cord. Insertion site: placentalinsertion: normal Amniotic fluid: Amount of AF: normal amount. MVP 5.5 cm. ELKIN 12.2 cm. Q12.8 cm, Q2 2.4 cm, Q3 5.5 cm, Q4 1.5 cm ANATOMY ----- The following structures appear normal: Head / Neck Cranium. Lateral ventricles. Choroid plexus.Midline falx. Cavum septi pellucidi. Cerebellum. Cisterna magna. Heart / Thorax Diaphragm. Abdomen Stomach. Kidneys. Bladder. GROWTH OVERVIEW ----- Exam date GA BPD (mm) HC (mm) AC (mm) FL(mm) HL (mm) EFW (g) 07/27/2024 20w 4d 46.3 26% 172.9 13% 151.4 37%33.3 36% 30.2 27% 347 32% 10/29/2024 34w 0d 81.8 17% 302.5 10% 284.5 14%62.2 6% 1,998 11% 11/16/2024 36w 4d 86.4 17% 322.2 19% 309.8 18%67.3 8% 2,564 17% COMMENT ----- Patient's name and date of were verified by the commissioning specialist prior tothe exam IMPRESSION ----- Viable at 36 weeks gestation. A follow-up ultrasound wasscheduled to assess growth Cephalic presentation Normal interval growth Estimated weight is at the 17th percentile with abdominalcircumference at the 18th percentile Amniotic fluid volume is normal Anterior placenta with normal placental cord insertion appreciated;placenta is not low-lying No follow-up ultrasounds recommended at this time ADDENDUM ----- RETRIGGER Mateus Garcia MD ORDERABLES Edited Res ult - Final from Last 3 Months Insurance [employer] PPO Care Teams Cerner Analyst Relationship Specialty Start Date End Date Darinel Jameson MD [address] [place] [address] PCP - General Family Practice 03/01/14
--- OUTSIDE RECORDS SUMMARY | 2024-11-25 20:20 | XMS_ITS | Continuity of Care Document ---
Author Organization [facility] Address [address] [place] [address] Phone Care Team Providers Care Ski Top Trimmer Name Role Phone Unavailable Unavailable Unavailable Advance Directives Directive Yes / No Effective Date File Name No Information Encounters Encounter Description Practice Location Reason(s) For Visit Diagnoses Date Provider Providers Copied on Encounter [facility], [address] [facility], [place], [place], [id number], tel:[phone] [facility] OBS/OUTPAT IENT No Information No Information Referring Provider: JAMESON CAPELLAN, [address] [place] [address],[place], [address]. tel:[phone] Family History Family Member Type Diagnosis Age At Onset No Information Payers Payer name Insurance type Covered constitution party ID Authoriza tion(s) No Information Social History Type Description Quantity Date Captured Comments Sex Female Smoking Status No Information Chief Complaint And Reason For Visit No Information History Of Present Illness Encounter Date Complaint History Of Prese nt Illness No Information Instructions Date Instruction Additional Infor mation No Information Assessments Type Assessment Date No Information
[2024-11-25 20:24] VITALS: BMI 22.8
--- NOTE | 2024-11-25 20:24 | OBADM ---
This patient, Tracy Dinh, admitted to the OB room Labor/Delivery/Recovery 109 for observation. Patient/family oriented to hospital policies and general routines including ID bracelet, bed and alarms, visiting hours, pain management, procedures, bathroom and other care routines, personal items, smoking policy, room service/diet, and visiting hours. Patient/Family are encouraged to report perceived risks to care and to ask questions if they do not understand what they are told or what they should do.
--- NOTE | 2024-11-26 13:06 | PM.OBTRLD ---
OB - Triage/Final Diagnosis Visit Information Date of evaluation: 11/25/24 Reason for evaluation: threatened labor Comments/Additional reasons for admission: I have assessed the risk for this patient, Tracy Dinh, and determined that she would benefit from observation care. Evaluation Vital signs: Vital Signs - 24 hr 11/25/24 20:00 11/25/24 20:24 Temperature 98.3 F Oxygen Delivery Room Air
== END 2024-11-25 20:44 | disposition home or self-care (01) ==
PROVIDERS: Admitting Provider Student in an Organized Health Care Education/Training Program; PCP Family Medicine; Visit Provider Student in an Organized Health Care Education/Training Program
DX: O47.1 False labor at or after 37 completed weeks of gestation (principal); Z3A.37 37 weeks gestation of pregnancy
CPT/HCPCS: G0378; G0379

== ENCOUNTER 2024-12-02 05:11 | Inpatient (IN) | payer OTHER, SELFPAY ==
[2024-12-02] VITALS (59 sets, daily range): BP systolic 81–121; BP diastolic 38–90; PULSE 75–122; RESP 16–18; TEMP 35.8–37; O2SAT 98–100; BMI 23.1
--- OUTSIDE RECORDS SUMMARY | 2024-12-02 05:39 | XMS_ITS | Clinical Summary ---
Author Organization [facility] Address [address] [facility] [place] [address] Care Team Providers Care Deliverer Outside Name Role Phone Unavailable Primary Care Provider Unavailabl e Source Comments [facility],non-owned Affiliates and Associated Physician Practices is amultiple site organization consisting of ambulatory clinics and hospital sitesin [place], [place], [place] and [place]. This disclosure is being madepursuant to the Care Everywhere program and may not contain all information available regarding this patient. Last updated 18.[facility] Allergies Active Allergy Reactions Criticality Noted Date [...] patient's age to complete this topic Insurance [facility] Advance Directives Documents on File Type Date Recorded Patient Cold Meat Cook Expl anation Adv Directive/Living Will/POA 12/06/2016
--- OUTSIDE RECORDS SUMMARY | 2024-12-02 05:39 | XMS_ITS | Clinical Summary ---
Author Organization [facility] Address [address] [address] Phone Care Team Providers Care Manager Pet Name Role Phone Darinel Jameson MD Primary Care Provider [phone] Encounters Date Type Department Care Team Description 11/16/2024 3:29 PM CDT - 11/16/2024 11:59 PM CDT Hospital Encounter [facility] Jared Aldana [address] [place] [phone] Mateus Garcia MD Discharge Disposition: Home or Self Care 10/29/2024 3:33 PM CDT - 10/29/2024 11:59 PM CDT Hospital Encounter [facility] Jared Aldana [address] [place] [id number] Art Zendejas MD Discharge Disposition: Home or [...] Sex Assigned at Female 07/27/2024 9:36 AM SALVAGE WORKER Legal Sex Female 9:27 AM CDT Gender Identity Female 07/27/2024 9:36 AM SALVAGE WORKER Sexual Orientation Straight 07/27/2024 9: 36 AM SALVAGE WORKER Plan of Treatment Health Maintenance Due Date [...] DINH Study Date: 11/16/2024 3:36pm Pat. NO: [id number] Referring MD: ART ZENDEJAS MD Site: [place] Email Marketing Intern: Argenis Palmer RDMS : 1995 Age: 29 ----- INDICATION ----- Screening Follow-Up CODING ----- Diagnoses Z3A.36: Weeks of gestation Z36.2: Encounter for other screening follow-up Procedures 23359: Ultrasound, uterus, real time with image documentation, [...] 5 lb 10 oz EFW by Hadlock ([id number]) Extremities / Bony Struc Biometry: FL / [...] and date of were verified by the accelerator technician prior to the exam IMPRESSION ----- Viable [...] Pat. Name:Sarah DINH Date:11/16/2024 3:36pm Pat. NO: [id number] :ART ZENDEJAS MD [facility]Argenis Palmer RDMS :1995Age:29 ----- INDICATION ----- Screening Follow-Up CODING ----- Diagnoses Z3A.36: Weeks of gestation Z36.2: Encounter for other screeningfollow-up Procedures 06358: Ultrasound, uterus, real time withimage documentation, follow up, transabdominal approach per fetus HISTORY ----- OB History 2. Para 1 T1L1 METHOD ----- Transabdominal ultrasound examination ----- Joseph . Number of fetuses: 1 DATING ----- Cycle:regular cycle GA by prior [id number] w + 4 d REMINGTON by prior [...] 5 lb 10 oz EFW by Hadlock ([id number]) Extremities / Bony Struc Biometry: FL / [...] and date of were verified by the accelerator technician prior tothe exam IMPRESSION ----- Viable at 36 weeks gestation. A follow-up ultrasound wasscheduled to assess growth Cephalic presentation Normal interval growth Estimated weight is at the 17th percentile with abdominalcircumference at the 18th percentile Amniotic fluid volume is normal Anterior placenta with normal placental cord insertion appreciated;placenta is not low-lying No follow-up ultrasounds recommended at this time ADDENDUM ----- RETRIGGER Mateus aGrcia MD ORDERABLES Edited Res ult - Final from Last 3 Months Insurance [employer] PPO Care Teams Manager Pet Relationship Specialty Start Date End Date Darinel Jameson MD [address] [place] [address] PCP - General Family Practice 03/01/14
--- OUTSIDE RECORDS SUMMARY | 2024-12-02 05:39 | XMS_ITS | Clinical Summary ---
Author Organization [facility] Address [address] [place] [address] Care Team Providers Care Director Dental Services Name Role Phone Darinel Jameson MD Primary Care Provider [phone] Allergies Active Allergy Reactions Criticality Noted Date [...] age to complete this topic Care Teams Director Dental Services Relationship Specialty Start Date End Date Darinel Jameson MD [address] [place] [address] PCP - General Dietist 03/25/16
--- OUTSIDE RECORDS SUMMARY | 2024-12-02 05:39 | XMS_ITS | Continuity of Care Document ---
Author Organization [facility] Address [address] [place] [address] Phone Care Team Providers Care Campground Hand Name Role Phone Unavailable Unavailable Unavailable Advance Directives Directive Yes / No Effective Date File Name No Information Encounters Encounter Description Practice Location Reason(s) For Visit Diagnoses Date Provider Providers Copied on Encounter [facility], [address] [facility], [place], [place], [id number], tel:[phone] [facility] OBS/OUTPAT IENT No Information No Information Referring Provider: JAMESON CAPELLAN, [address] [place] [address],[place], [address]. tel:[phone] Family History Family Member Type Diagnosis Age At Onset No Information Payers Payer name Insurance type Covered libertarian ID Authoriza tion(s) No Information Social History Type Description Quantity Date Captured Comments Sex Female Smoking Status No Information Chief Complaint And Reason For Visit No Information History Of Present Illness Encounter Date Complaint History Of Prese nt Illness No Information Instructions Date Instruction Additional Infor mation No Information Assessments Type Assessment Date No Information
--- OUTSIDE RECORDS SUMMARY | 2024-12-02 05:39 | XMS_ITS | Continuity of Care Document ---
Author Organization [facility] Address [address] [place] [address] [facility] [address] [place] [address] Phone Care Team Providers Care Director Engineering Name Role Phone Miriam Heller Unavailable Unavailable Advance Directives Directive Yes / No Effective Date File Name No Information Encounters Encounter Description Practice Location Reason(s) For Visit Diagnoses Date Provider Providers Copied on Encounter [facility], [address] [place] [address] [address], [place], [place], [id number], [place] tel:[phone] [facility] No Information Dec-0 7-200 4 Pina Pineda. [address] [facility] , [address], [place], [address], [place]. tel:[phone] Family History Family Member Type Diagnosis Age At Onset No Information Payers Payer name Insurance type Covered alliance party ID Authoriza tion(s) Medicaid [facility] [id number] Social History Type Description Quantity Date Captured [...]
[2024-12-02] MEDS: LACTATED RINGERS 500 ML 999 ML IV CONT (05:51)
[2024-12-02 06:01] LABS: Basophils Percent Auto 0.1 % (0.2-1.2); Eosinophils Absolute Auto 0.1 K/mm3 (0-0.3); Eosinophils Percent Auto 0.6 % (0-4.4); Hematocrit 32.2 % (37.0-47.0); Hemoglobin 10.4 g/dL (12.0-15.0); Immature Granulocyte Absolute 0.06 K/mm3 (0.00-0.031); Immature Granulocyte Percent A 0.4 % (0-0.5); Mean Corpuscular HGB Conc 32.3 g/dl (32-36); Mean Corpuscular Hemoglobin 27.7 pg (26-34); Mean Corpuscular Volume 85.6 fl (80-100); Mean Platelet Volume 9.4 fl (7.4-10.4); Monocytes Absolute Auto 0.7 K/mm3 (0.1-0.6); Monocytes Percent Auto 4.6 % (2.6-8.5); Neutrophils Absolute Auto 12.3 K/mm3 (1.3-6.7); Neutrophils Percent Auto 85.3 % (45.5-73.1); Platelet Count Result 180 k/mm3 (150-375); Red Blood Count 3.76 M/mm3 (4.2-5.4); Red Cell Distribution Width 14.5 % (11.5-14.5); White Blood Count 14.5 K/mm3 (4.5-10.0)
--- NOTE | 2024-12-02 06:24 | LDADM ---
This patient, Tracy Dinh, was admitted to Labor/Delivery/Recovery 105 on 12/02/24 at 05:11. Plans for labor, pain management and were discussed with patient. Patient/family oriented to hospital policies and general routines including ID bracelet, bed and alarms, visiting hours, pain management, procedures, bathroom and other care routines, personal items, smoking policy, room service/diet and guest tray routines, security routines, and visiting hours. Patient/Family are encouraged to report perceived risks to care and to ask questions if they do not understand what they are told or what they should do. See OBIX for further documentation.
[2024-12-02] MEDS: TERBUTALINE SULFATE 1 MG/ML VIAL 0.25 MG SUB-Q ×2 (06:33→06:50)
[2024-12-02 06:42] LABS: Syphilis IgG/IgM Antibody Negative (Negative)
[2024-12-02] MEDS: ACETAMINOPHEN 500 MG TABLET 1000 MG PO (06:49)
[2024-12-02] MEDS: FAMOTIDINE 20 MG/2 ML VIAL IV PUSH (06:51)
[2024-12-02] MEDS: ONDANSETRON INJ 4 MG/2 ML VIAL IV PUSH (06:52)
[2024-12-02 06:54] LABS: HIV 1/2 Ab P24 Ag Result Negative (Negative)
--- NOTE | 2024-12-02 07:31 | P.PNAN_ITS ---
Anes - Initial Pre Proc Eval Procedure: Operation Date: 12/02/24 06:40 Proposed Procedures p Section - Art Zendejas MD Date/Time: 12/02/24 07:31 Surgeon: Art Zendejas MD Pre Op Diagnosis: SROM, Decels Patient Data Age: 29 Gender: F Height: Weight: Last Vital Signs Temp 36.4 C 12/02/24 06:01 Pulse 106 H 12/02/24 06:29 BP 121/90 12/02/24 06:29 Pulse Ox 100 12/02/24 06:52 Allergies Allergy/AdvReac Type Severity Reaction Status Date / Time amoxicillin Allergy Mild HIVES Verified 12/01/24 08:58 polyethylene glycol 3350 Allergy Mild Hives Verified 12/01/24 08:58 (From Miralax) Home Medications ?Medication ?Instructions ?Recorded ?Confirmed ?Type docosahexaenoic acid 200 mg 200 mg PO DAILY 04/27/24 11/25/24 History capsule ( DHA) docusate sodium 100 mg capsule 100 mg PO DAILY 09/04/24 11/25/24 History (Colace) ferrous sulfate 325 mg (65 mg 325 mg PO DAILY 10/15/24 11/25/24 History iron) tablet Laboratory Tests 12/02/24 05:43 WBC 14.5 H K/mm3 (4.5-10.0) RBC 3.76 L M/mm3 (4.2-5.4) Hgb 10.4 L g/dL (12.0-15.0) Hct 32.2 L % (37.0-47.0) MCV 85.6 fl (80-100) MCH 27.7 pg (26-34) MCHC 32.3 g/dl (32-36) RDW 14.5 % (11.5-14.5) Plt Count 180 k/mm3 (150-375) MPV 9.4 fl (7.4-10.4) Immature Gran % (Auto) 0.4 % (0-0.5) Neut % (Auto) 85.3 H % (45.5-73.1) Lymph % (Auto) 9.0 L % (18.3-44.2) Greenwood % (Auto) 4.6 % (2.6-8.5) Eos % (Auto) 0.6 % (0-4.4) Baso % (Auto) 0.1 L % (0.2-1.2) Lymph # (Auto) 1.30 K/mm3 (0.9-3.2) Greenwood # (Auto) 0.7 H K/mm3 (0.1-0.6) Eos # (Auto) 0.1 K/mm3 (0-0.3) Baso # (Auto) 0.0 K/mm3 (0.0-0.1) Abs Immat Gran (auto) 0.06 H K/mm3 (0.00-0.031) Absolute Neuts (auto) 12.3 H K/mm3 (1.3-6.7) Absolute Nucleated RBC 0.000 K/mm3 (0.0-0.012) Nucleated RBC % 0.0 % (0.0-0.2) Syphilis IgG/IgM Ab Negative (Negative) HIV 1&2 Ab/P24 Ag 4thGn Negative (Negative) Blood Type A Positive Antibody Screen Pending Patient hx anesthesia problems: none Family hx anesthesia problems: none Results Review: All pre-operative results and documents have been reviewed as part of the pre-operative evaluation. [facility] Past Medical History Medical History Vaginal delivery Depression Fracture, ankle Sinus problem Bronchitis Surgical History Surgical History S/P wisdom tooth extraction Family History Family History Other Breast cancer Carcinoma of colon Depression Family history of arthritis Family history of heart disease in male family member before age 55 Social History Social History Smoking status: Never smoker Alcohol intake: current Substance use: never Do You Feel Safe in your Home?: Yes Lack of Transportation: No Lack of Food: Never True Current Housing: I Have Housing Concerned About Future Housing: No Difficulty Paying Gas/Electric Bills: No Difficulty Paying for Meds: No Currently Unemployed: No Education: Bachelor's Degree Difficulty w/ Childcare or Family Care: No Living arrangements: with family Gender identity (if verbalized by the patient): Female Spiritual care concerns: No Anes - Eval Final PreProcedure Day of Procedure 12/02/24 07:31 Patient weight: obese Heart: regular rate and rhythm Lungs: clear to auscultation and normal air movement Airway: Mallampati scale class II Neurological: alert and oriented Last oral intake: >/= 8 hours ASA classification: II Emergent: no Anesthetic plan: proceed Anesthesia type and monitoring: regional spinal and standard monitoring Results Review: All pre-operative results and documents have been reviewed as part of the pre- operative evaluation. Informed Consent: The patient's anesthetic plan and its attendant risks and benefits were discussed with the patient/family/POA. Questions were solicited and answers provided to the satisfaction of the patient/family/POA.
--- NOTE | 2024-12-02 11:00 | OBPPTRN ---
1045-Patient transferred to post room #282 via stretcher. Support person present. Oriented to unit, room, information board, rooming in, admission packet and security measures. Patient verbalizes understanding.
[2024-12-02] MEDS: SIMETHICONE 80 MG TAB.CHEW PO ×2 (11:55→16:57)
[2024-12-02] MEDS: LIDOCAINE 5% PATCH 1 PATCH TRANSDERM (11:55)
[2024-12-02] MEDS: ACETAMINOPHEN 325 MG TABLET 650 MG PO ×2 (13:23→19:20)
[2024-12-02] MEDS: KETOROLAC 15 MG/ML VIAL (*BKC) IV PUSH ×2 (13:23→19:20)
[2024-12-02] MEDS: LORATADINE 10 MG TABLET PO (14:37)
[2024-12-02] MEDS: DEXTROSE 5%/0.45% SOD CHL 1,000 ML 125 ML IV CONT (15:40)
[2024-12-02] MEDS: DOCUSATE SODIUM 100 MG CAPSULE PO (16:57)
--- NOTE | 2024-12-02 17:15 | PC.NURSE ---
1610: Met with patient to offer assistance. So far baby has fed well and her blood sugars have been WNL. Mom breastfed her first baby. Mom will be feeding again soon. Mom agrees to a latch check. RN updated and will let me know when she gets the blood sugar. 1715: Mom has baby latched at the breast and she is suckling intermittently. Mom latched independently without difficulty. We reviewed signs of a deep latch with a wide open mouth and as much breast tissue in baby's mouth as possible. Mom is reminded to feed at least 8 times every 24 hours and to wake baby if she hasn't fed for >3 hours. Mom denies any pain with feeding. She is encouraged to call out for additional assistance as needed. RN updated.
[2024-12-03] MEDS: KETOROLAC 15 MG/ML VIAL (*BKC) IV PUSH ×2 (00:30→07:29)
[2024-12-03] MEDS: ACETAMINOPHEN 325 MG TABLET 650 MG PO ×4 (00:30→19:00)
[2024-12-03] MEDS: KCL 20 MEQ/D5/0.45% SOD CHL 1,000 ML 125 ML IV CONT (00:30)
[2024-12-03 05:18] VITALS: BP 120/84; PULSE 94; RESP 18; O2SAT 99
[2024-12-03 05:35] LABS: Hematocrit 27.6 % (37.0-47.0); Hemoglobin 8.9 g/dL (12.0-15.0); Mean Corpuscular HGB Conc 32.2 g/dl (32-36); Mean Corpuscular Hemoglobin 27.9 pg (26-34); Mean Corpuscular Volume 86.5 fl (80-100); Platelet Count Result 162 k/mm3 (150-375); Red Blood Count 3.19 M/mm3 (4.2-5.4); Red Cell Distribution Width 14.6 % (11.5-14.5); White Blood Count 17.4 K/mm3 (4.5-10.0)
[2024-12-03 06:14] LABS: Band Neutrophils Percent 30 % (0-6); Lymphocytes Absolute Manual 0.87 K/mm3 (1.1-4.5); Lymphocytes Percent Manual 5 % (18-44); Monocytes Absolute Manual 0.17 K/mm3 (0.1-0.90); Monocytes Percent Manual 1 % (3-9); Neutrophils Absolute Manual 16.35 K/mm3 (1.7-7.2); Neutrophils Percent Manual 64 % (46-73); Platelet Estimate Adequate (Adequate); Schistocytes None Seen; Total Cells Counted 100
--- NOTE | 2024-12-03 06:52 | W.PM.OBCSD ---
OB - Delivery Note Procedure Delivery date: 12/03/24 Pre-op diagnosis: Non-Reassuring Status Post-op Diagnosis: Same Induction method: None Delivery monitor: External FHT Prior to decision for section, [facility] labor guidelines were considered and discussed with the patient and staff. Decision made to proceed with the section.: Yes Procedure Performed: Primary Surgeon: Art Zendejas MD Anesthesia type: Spinal Description of Procedure/Findings: Female , nuchal cord x 2 , bandelero cord, blood amniotic fluid, normal uterus, fallopian tubes and ovaries After informed consent, risks and benefits of the procedure was discussed with the patient. The patient was taken to the operating room where she was placed in the dorsal lithotomy position with leftward tilt. Spinal anesthesia was administered and she was then prepped and draped in the usual sterile fashion. A Pfannenstiel skin incision was made with a scalpel and carried through to the underlying layer of fascia. The fascia was then nicked in the midline, extending bilaterally. The fascia was dissected off the rectus muscles bluntly and sharply, superiorly and inferiorly. The rectus muscles were in the midline, and peritoneum was identified and entered bluntly. The pelvic organs were visualized. The bladder blade was then inserted. The bladder was displaced with bladder blade below lower uterine segment. The low transverse uterine incision was then made with the scalpel and extended with bilateral index fingers in a crescent-shaped fashion. The amniotic sac was entered. Bloody amniotic fluid noted. The head was delivered, nuchal cord x 2 manually reduced and the bandeloro cord reduced and the rest of the was delivered. The nose and mouth suctioned with bulb. The cord was clamped twice and cut. The was then handed off to the awaiting pediatric staff. The placenta was then delivered manually. The uterine cavity was sponge curretted. The uterus was then exteriorized. The uterine incision was then closed with 0 vicryl in a running locked fashion. A second layer of 0 vicryl was used in umbricating fashion. A figure of eight stitch was used for hemostasis. Posterior cul de sac cleared of debris. The uterus was then returned to the abdomen. Bilateral gutters were irrigated and cleared off all clots and debris. The uterine incision was noted to be hemostatic. Interceed placed on uterine incision and vertically on front of uterus. The muscle bellies were inspected and noted to be hemostatic. The subfascial layer was noted to be hemostatic, and the fascia was closed with 0 Vicryl in a running fashion. The subcutaneous layer was then irrigated and approximated with 3-0 Vicryl. The skin was closed with 4.0 vicryl in a subcutaneous fashion with 3.0 vicryl. Skin dermabond applied at incision. All instruments, needle, and lap counts were correct x3. The patient was taken to the recovery room in stable condition. Specimen: Yes (placenta ) Urine Output: 100 Drains: No Packing: No Pathology: Yes (placenta and cord) Complications: No immediate complications Condition: Critical Disposition: Floor Calcium Baby Date of : 12/02/24 Time of : 07:08 Gestational Age by Date: 38 Infant gender: Female Weight (pounds): 6 Weight (ounces): 5 presentation: vertex Placenta delivery description: Manual Removal Cord Vessel Description: 3 Vessels, Nuchal Cord (x2), Loose, Reduced, Clamped/Cut and Around Extremity score one minute: 8 score five minutes: 9
[2024-12-03 07:05] VITALS: BP 106/73; PULSE 101; RESP 16; TEMP 36.8; O2SAT 99
[2024-12-03] MEDS: SIMETHICONE 80 MG TAB.CHEW PO ×3 (07:29→17:03)
[2024-12-03] MEDS: POLYSACCHARIDE IRON COMPLEX 150 MG CAPSULE PO ×2 (07:31→17:03)
[2024-12-03] MEDS: MULTIVIT/MIN/PREN/FOL AC/IRON TABLET 1 TAB PO (07:32)
[2024-12-03] MEDS: DOCUSATE SODIUM 100 MG CAPSULE PO ×2 (07:32→17:03)
[2024-12-03 08:00] VITALS: PULSE 101; RESP 16; O2SAT 99
--- NOTE | 2024-12-03 09:05 | WPDANLDPN2 ---
Anes-Prog Note L&D Date/Time: 12/03/24 09:05 Comfortable throughout: section Neuraxial method: spinal Epidural/Spinal procedure site: clean & non-tender Neuro status: Neuro function grossly intact. Cardiovascular status: normal Respiratory status: normal Airway patency: baseline Mental status: baseline Post-Op hydration status: normal Vital Signs: Last Vital Signs Temp 36.8 C 12/03/24 07:05 Pulse 101 H 12/03/24 07:05 Resp 16 12/03/24 07:05 BP 106/73 12/03/24 07:05 Pulse Ox 99 12/03/24 07:05 O2 Del Method Room Air 12/02/24 11:00 Pain score (VAS): 0/10 I/O: Intake & Output 12/02/24 12/03/24 12/03/24 23:59 07:59 15:59 Intake Total 779.2 895.8 Output Total 1350 1450 Balance -570.8 -554.2 Post-procedural complaints: none Patient feedback: Patient satisfied with anesthetic care.
--- NOTE | 2024-12-03 09:06 | WPDANLDNPN2 ---
Anes-Prog Note L&D-Neuraxial Date/Time: 12/03/24 09:06 Neuraxial medications: intrathecal PF morphine Opiod-related complaints: pruritis moderate, treatment effective Patient feedback: Patient satisfied with post-operative pain management.
--- NOTE | 2024-12-03 10:10 | PC.NURSE ---
Mother verbalizes she is able to independently latch with appropriate positioning and alignment. She denies any nipple discomfort and is responsively . Infant is currently meeting outcomes for weight, output, jaundice, blood sugar and feeding frequencies of 8-12 times in 24 hours. Mother declines any additional assistance or education at this time. Mother is encouraged to call for assistance if her infant doesn?t latch, pain with latching, questions or concerns. Mother voiced understanding of information shared along with the mom/baby guide for an additional resource. Reported to the Primary RN.
[2024-12-03] MEDS: IBUPROFEN 600 MG TABLET PO ×2 (13:02→19:00)
--- NOTE | 2024-12-03 15:45 | PC.NURSE ---
1500. Answered moms questions about a sleepy baby when it's time to feed, milk supply, and how to listen for infants swallowing sounds. Mother voiced understanding of skin to skin, stimulating with massage touch, responsive feedings, hand expressed colostrum, talking to infant to encourage if it has been 2 -2.5 hours since the start of the last , to call if infant does not latch, or if there is discomfort with . Parents voiced understanding of information, demonstrated learning and will call if there is a request for assistance. Reported to the Primary RN.
[2024-12-03] MEDS: HYDROcodone/acetaminophen (*CRX) 5-325 MG TABLET 1 TAB PO ×2 (17:03→22:40)
[2024-12-04 01:00] VITALS: BP 119/77; PULSE 100; RESP 16; TEMP 36.4; O2SAT 99
[2024-12-04] MEDS: IBUPROFEN 600 MG TABLET PO ×3 (01:00→13:58)
[2024-12-04] MEDS: ACETAMINOPHEN 325 MG TABLET 650 MG PO ×3 (01:00→13:57)
[2024-12-04] MEDS: HYDROcodone/acetaminophen (*CRX) 5-325 MG TABLET 1 TAB PO (03:44)
[2024-12-04 07:10] VITALS: BP 113/70; PULSE 86; RESP 16; TEMP 36.5; O2SAT 100
[2024-12-04] MEDS: MULTIVIT/MIN/PREN/FOL AC/IRON TABLET 1 TAB PO (07:42)
[2024-12-04] MEDS: SIMETHICONE 80 MG TAB.CHEW PO ×2 (07:53→13:58)
[2024-12-04] MEDS: POLYSACCHARIDE IRON COMPLEX 150 MG CAPSULE PO (07:54)
[2024-12-04] MEDS: DOCUSATE SODIUM 100 MG CAPSULE PO (07:54)
--- NOTE | 2024-12-04 08:00 | PC.NURSE ---
Reviewed standard discharge information with patient including monitoring for required output, transition of stools, feeding 8-12 times every 24 hours, milk production, and follow up at [facility] and with barber shop manager in the first week of life. Mom is currently with an optimal latch. We measured her for flange size (16mm nipple, use 19mm insert for Mom Edward). Parents are encouraged to take the feeding log and continue to track feedings and output for the first week . Offered outpatient resources with [facility] referral (declined) and Services at [place]. Patient has the Mom/Baby Guide for further education and reference for common concerns, phone numbers, and guidance on when to call the doctor. A feeding plan was added to the ?s discharge plan. Patient states that she has no further questions or concerns regarding .???
--- NOTE | 2024-12-04 10:55 | PC.NURSE ---
Patient viewed the discharge video Mother & Baby Care, The First Two Weeks . Patient was given the opportunity and encouraged to ask questions. Patient verbalized understanding of information shared and has been given the mother/baby guide for home reference.
[2024-12-05 08:26] VITALS: BP 103/68; PULSE 88; RESP 18; TEMP 36.9; O2SAT 98
== END 2024-12-04 14:40 | disposition home or self-care (01) | DRG 786 ==
LOC: ANHLDR 05:43 → ANHOB2 10:59
PROVIDERS: Obstetrics & Gynecology; Admitting Provider Obstetrics & Gynecology; Visit Provider Obstetrics & Gynecology
PROC: 10D00Z1 Extraction of Products of Conception, Low, Open Approach (ICD-10-PCS; CPT 59514; principal; 2024-12-02 06:40)
DX: O69.81X0 Labor and delivery complicated by cord around neck, without compression, not applicable or unspecified (principal); O45.93 Premature separation of placenta, unspecified, third trimester; O76 Abnormality in fetal heart rate and rhythm complicating labor and delivery; O77.0 Labor and delivery complicated by meconium in amniotic fluid; Z3A.38 38 weeks gestation of pregnancy; Z37.0 Single live birth
CPT/HCPCS: 36415; 85025; 86593; 86703; 86850; 86900; 86901; 88307; A9270; G0432; J1885; J2274; J2405; J2590; J3105; J3480; J7120

== ENCOUNTER 2024-12-11 21:54 | Inpatient (IN) | payer OTHER, SELFPAY ==
--- NOTE | ~2024-12-11 | CT_ITS ---
CLINICAL INDICATION: fluid collections COMPARISON: 12/12/2024. TECHNIQUE: Multiple contiguous axial images of the abdomen and pelvis were performed following the ad ministration of with 100 mL Omnipaque-350 intravenous contrast The dose-length product (DLP) was 305.40 mGy-cm. Automated exposure control and iterative reconstruction technique were employed. FINDINGS/OBSERVATIONS: Visualized lower thorax: Decreased bilateral pleural effusions (right greater than left), when compared with previous examinat ion. Adjacent compressive atelectasis remains. Calcified nodule within the right lung base, consisten t with prior granulomatous disease. The remainder of the lungs are clear, with interval resolution of the mild pulmonary edema, seen on p revious examination. The heart is of normal size, without pericardial effusion. Small hiatal hernia persists. Liver: The liver demonstrates heterogeneous enhancement and is decreased in size from previous study now darell suring 19 cm in longitudinal dimension (compared with 21 cm on the previous study). Gallbladder and biliary system: The gallbladder is distended, and otherwise unremarkable. Pancreas: The pancreas enhances homogeneously without ductal dilatation. Spleen: The spleen enhances homogeneously and is borderline enlarged measuring 11 cm in longitudinal dimensio n. Kidneys: The bilateral kidneys enhance symmetrically without hydronephrosis or renal calculi. Adrenal glands: Unremarkable. Gastrointestinal tract: Fecal stasis within the colon. Appendix: The air-filled appendix is of normal caliber (axial series, images 123 -128). Vasculature: Unremarkable. Lymph nodes: No pathologically enlarged or morphologically suspicious lymph nodes within the retroperitoneum or at the root of the mesentery. Pelvic structures: The bladder is minimally distended, and otherwise unremarkable. The uterus is enlarged typical for a examination. Interval decrease in size of a rim-enhancing fluid collection primarily within the left hemipelvis, m easuring 16.3 x 47 x 18 mm (anterior to posterior x medial to lateral x cranial to caudal dimension). This is compared with 24.3 x 62 x 19 mm (anterior to posterior x medial to lateral x cranial to caud al dimension) on the previous study. Continuous with the endometrial cavity, (best visualized on sagittal imaging) is an additional focus of decreased attenuation, with no significant rim enhancement measuring 7.6 x 1.8 cm (largely stable in size, given changes in positioning and technique, measuring 7.5 x 1.5 cm on the previous study per formed 48 hours earlier). This is situated in the presumed location of the section incision. Body wall and musculoskeletal: Small multilobulated fat-containing umbilical hernia. No significant degenerative disease within the lower thoracic or lumbosacral spine. IMPRESSION: Interval decrease in size of a rim-enhancing fluid collection primarily within the left hemipelvis, a s detailed above. Continuous within the endometrial cavity, best visualized on sagittal imaging is an additional focus of decreased attenuation without significant rim enhancement, largely stable in size, given changes i n positioning and technique, within the presumed location of the section incision. Reviewed, dictated and finalized at location A. IMPRESSION: Interval decrease in size of a rim-enhancing fluid collection primarily within the left hemipelvis, as detailed above. Continuous within the endometrial cavity, best visualized on sagittal imaging i s an additional focus of decreased attenuation without significant rim enhancem ent, largely stable in size, given changes in positioning and technique, within the presumed location of the section incision.
--- NOTE | ~2024-12-11 | CT_ITS ---
EXAMINATION: CT abdomen pelvis w con DATE: 12/12/2024 07:26 INDICATION: section with purulent drainage. TECHNIQUE: Computed tomography (CT) of the abdomen and pelvis was performed with 100 mL Omnipaque-350 intravenous contrast. Automated exposure control and iterative reconstruction technique were employe d. The dose-length product was 355.76 mGy-cm. COMPARISON: CT dated 07/30/2015 FINDINGS: Small bilateral dependently layering pleural effusions with dependent atelectasis in the bilateral lo wer lobes. Calcified right lower lobe nodule consistent with old granulomatous disease. Smooth septal line thickening at the bilateral lung bases consistent with mild pulmonary edema. Heart size is norm al. No pericardial effusion. Focal hepatic steatosis at the ligamentum teres. Not make enhancement pa ttern to the liver which could be due to phase of contrast or hepatic venous congestion. Gallbladder, spleen, pancreas, bilateral adrenal glands and kidneys are normal. No bowel obstruction. Normal appe ndix. Small fat-containing umbilical hernia. Bladder is normal. Enlarged post gravid uterus. There is fluid within the endometrial canal extending through a section wound at the anterior lower uterine segment to communicate with a 7.9 x 4.9 x 2.1 cm likely rim-enhancing fluid collection situat ed between uterus and the bladder. There is a minimal amount of ascites in the pelvis. There is subcu taneous edema along the anterior pelvic wall. A few small foci of gas along a transverse sec tion the anterior pelvic wall. 1.7 cm diameter rim enhancing fluid collection at the right side of th e section scar along the superficial margin of the abdominal wall musculature. No pathologic ally enlarged abdominal or pelvic lymphadenopathy. Bones are unremarkable. IMPRESSION: 1. 7.9 x 4.9 x 2.1 cm rim-enhancing fluid collection situated between the enlarged postgravid uterus and the bladder. The fluid collection appears contiguous with fluid in the endometrial canal and an i ntervening section wound along the anterior lower uterine segment. Differential would includ e hematoma or abscess in the appropriate clinical setting. 2. 1.7 cm rim-enhancing fluid collection along the superficial margin of the pelvic wall musculature at the right side of a section wound with similar differential of hematoma versus abscess. 3. Mild pulmonary edema small bilateral pleural effusions. 4. Symmetric appearance to the liver which could be due to phase of contrast or hepatic venous conges tion. Reviewed, dictated and finalized at location A. IMPRESSION: 1. 7.9 x 4.9 x 2.1 cm rim-enhancing fluid collection situated between the enlar ged postgravid uterus and the bladder. The fluid collection appears contiguous with fluid in the endometrial canal and an intervening section wound a long the anterior lower uterine segment. Differential would include hematoma or abscess in the appropriate clinical setting. 2. 1.7 cm rim-enhancing fluid collection along the superficial margin of the pe lvic wall musculature at the right side of a section wound with simila r differential of hematoma versus abscess. 3. Mild pulmonary edema small bilateral pleural effusions. 4. Symmetric appearance to the liver which could be due to phase of contrast or hepatic venous congestion.
--- OUTSIDE RECORDS SUMMARY | 2024-12-11 21:57 | XMS_ITS | Clinical Summary ---
Author Organization [facility] Address [address] [facility] [place] [address] Care Team Providers Care Machine Tool Operator Name Role Phone Unavailable Primary Care Provider Unavailabl e Source Comments [facility],non-owned Affiliates and Associated Physician Practices is amultiple site organization consisting of ambulatory clinics and hospital sitesin [place], [place] and [place]. This disclosure is being madepursuant to the Care Everywhere program and may not contain all information available regarding this patient. Last updated 18.[facility] Allergies Active Allergy Reactions Criticality Noted Date [...] patient's age to complete this topic Insurance [facility] SELF PAY NO INSURANCE Member Subscriber Plan / Payer (Ef fective for All Dates) Name:Tracy Grossman Member ID:Not on file Relation to Subscriber:Not on file Name:TRACY GROSSMAN Subscriber ID:Not on file (Home) Address: [address] [place] [address] Payer ID:Not on file Group ID:Not on file Type:Self Pay Address: [place], [place] Advance Directives Documents on File Type Date Recorded Patient Marketing Assistant Retail Division Expl anation Adv Directive/Living Will/POA 12/06/2016
--- OUTSIDE RECORDS SUMMARY | 2024-12-11 21:57 | XMS_ITS | Clinical Summary ---
Author Organization [facility] Address [address] [place] [address] Care Team Providers Care Restaurant Maintenance Technician Name Role Phone Darinel Jameson MD Primary Care Provider [phone] Allergies Active Allergy Reactions Criticality Noted Date [...] age to complete this topic Care Teams Restaurant Maintenance Technician Relationship Specialty Start Date End Date Darinel Jameson MD [address] [place] [address] PCP - General Refinery Technician 03/25/16
--- OUTSIDE RECORDS SUMMARY | 2024-12-11 21:57 | XMS_ITS | Clinical Summary ---
Author Organization [facility] - 20[address] [address] Phone Care Team Providers Care J2Ee Developer Name Role Phone Darinel Jameson MD Primary Care Provider [phone] Encounters Date Type Department Care Team Description 11/16/2024 3:29 PM CDT - 11/16/2024 11:59 PM CDT Hospital Encounter [facility] Jared Aldana [address] [place] [phone] Mateus Garcia MD Discharge Disposition: Home or Self Care 10/29/2024 3:33 PM CDT - 10/29/2024 11:59 PM CDT Hospital Encounter [facility] Jared Aldana [address] [place] [phone] Art Zendejas MD Discharge Disposition: Home or [...] Sex Assigned at Female 07/27/2024 9:36 AM LONGSHORE EQUIPMENT OPERATOR Legal Sex Female 9:27 AM CDT Gender Identity Female 07/27/2024 9:36 AM LONGSHORE EQUIPMENT OPERATOR Sexual Orientation Straight 07/27/2024 9: 36 AM LONGSHORE EQUIPMENT OPERATOR Plan of Treatment Health Maintenance Due Date [...] DINH Study Date: 11/16/2024 3:36pm Pat. NO: [id number] Referring MD: ART ZENDEJAS MD Site: [facility] Assistant: Argenis Palmer RDMS : 1995 Age: 29 ----- INDICATION ----- Screening Follow-Up CODING ----- Diagnoses Z3A.36: Weeks of gestation Z36.2: Encounter for other screening follow-up Procedures 78854: Ultrasound, uterus, real time with image documentation, [...] 5 lb 10 oz EFW by Hadlock ([id number]) Extremities / Bony Struc Biometry: FL / [...] and date of were verified by the county ordinary prior to the exam IMPRESSION ----- Viable [...] Pat. Name:Sarah DINH Date:11/16/2024 3:36pm Pat. NO: [id number] :ART ZENDEJAS MD [facility]Argenis Palmer RDMS :1995Age:29 ----- INDICATION ----- Screening Follow-Up CODING ----- Diagnoses Z3A.36: Weeks of gestation Z36.2: Encounter for other screeningfollow-up Procedures 29427: Ultrasound, uterus, real time withimage documentation, follow up, transabdominal approach per fetus HISTORY ----- OB History 2. Para 1 T1L1 METHOD ----- Transabdominal ultrasound examination ----- Joseph . Number of fetuses: 1 DATING ----- Cycle:regular cycle GA by prior [id number] w + 4 d REMINGTON by prior [...] 5 lb 10 oz EFW by Hadlock ([id number]) Extremities / Bony Struc Biometry: FL / [...] and date of were verified by the county ordinary prior tothe exam IMPRESSION ----- Viable at [...] - Final from Last 3 Months Insurance [employer] OPEN ACCESS Care Teams J2Ee Developer Relationship Specialty Start Date End Date Darinel Jameson MD [facility] [place] [phone] PCP - General Family Practice 03/01/14
[2024-12-11 22:19] VITALS: BP 130/87; PULSE 63; RESP 16; TEMP 36.5; O2SAT 99
[2024-12-12 03:34] VITALS: BP 142/85; PULSE 84; RESP 16; O2SAT 98
[2024-12-12 05:14] VITALS: BP 137/92; PULSE 66; RESP 19; O2SAT 98
[2024-12-12 06:27] LABS: Basophils Percent Auto 0.2 % (0.2-1.2); Eosinophils Absolute Auto 0.1 K/mm3 (0-0.3); Eosinophils Percent Auto 0.6 % (0-4.4); Hematocrit 26.7 % (37.0-47.0); Immature Granulocyte Absolute 0.17 K/mm3 (0.00-0.031); Lymphocytes Absolute Auto 1.92 K/mm3 (0.9-3.2); Lymphocytes Percent Auto 11.8 % (18.3-44.2); Mean Corpuscular Hemoglobin 26.8 pg (26-34); Mean Corpuscular Volume 89.3 fl (80-100); Mean Platelet Volume 8.2 fl (7.4-10.4); Monocytes Absolute Auto 0.4 K/mm3 (0.1-0.6); Monocytes Percent Auto 2.6 % (2.6-8.5); Neutrophils Absolute Auto 13.6 K/mm3 (1.3-6.7); Neutrophils Percent Auto 83.8 % (45.5-73.1); Platelet Count Result 355 k/mm3 (150-375); Red Blood Count 2.99 M/mm3 (4.2-5.4); Red Cell Distribution Width 14.8 % (11.5-14.5); White Blood Count 16.3 K/mm3 (4.5-10.0)
--- NOTE | 2024-12-12 06:30 | ED_ITS ---
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 Patient presents to the emergency department with purulent drainage out of her scar. She states that has been red and erythematous with tender to palpation and heart skin over last week. She has called the exchange number for her OBGYN and they prompted her to go the emergency department. She has been soaking through pads with purulent drainage more so at the right side of her abdominal wall. Notices that there has been some skin discoloration and redness as well as some minor leg swelling. No fever, chills, abdominal pain otherwise. She endorses pain with movement of her incision site but no active dehiscence. No bleeding that she has noted but she notes yellow purulent drainage requiring frequent changes of her dressings. Her OBGYN is Dr. Zendejas. Related Data Home Medications ?Medication ?Instructions ?Recorded ?Confirmed ?Last Taken ?Type docosahexaenoic acid 200 mg 200 mg PO DAILY 04/27/24 11/25/24 11/25/24 06:30 History capsule ( DHA) docusate sodium 100 mg capsule 100 mg PO DAILY 09/04/24 11/25/24 11/25/24 06:30 History (Colace) ferrous sulfate 325 mg (65 mg 325 mg PO DAILY 10/15/24 11/25/24 11/25/24 06:30 History iron) tablet Allergies Allergy/AdvReac Type Severity Reaction Status Date / Time amoxicillin Allergy Mild HIVES Verified 12/11/24 21:55 polyethylene glycol 3350 Allergy Mild Hives Verified 12/11/24 21:55 (From Miralax) Review of Systems 2 Review of Systems: As reviewed above in HPI [facility] Past Medical History Medical History (Updated 12/12/24 @ 08:02 by Maxwell John MD) Vaginal delivery Depression Fracture, ankle Sinus problem Bronchitis Surgical History Surgical History S/P wisdom tooth extraction Family History Family History Other Breast cancer Carcinoma of colon Depression Family history of arthritis Family history of heart disease in male family member before age 55 Social History Social History Smoking status: Never smoker Second hand tobacco smoke exposure: No Alcohol intake: current Substance use: never Do You Feel Safe in your Home?: Yes Lack of Transportation: No Lack of Food: Never True Current Housing: I Have Housing Concerned About Future Housing: No Difficulty Paying Gas/Electric Bills: No Difficulty Paying for Meds: No Currently Unemployed: No Education: Associate Degree Difficulty w/ Childcare or Family Care: No Living arrangements: with family Gender identity (if verbalized by the patient): Female Spiritual care concerns: No Exam 2 Narrative: GENERAL: [Well-appearing, well-nourished, and in no acute distress.] HEAD: [Normocephalic, atraumatic.] EYES: [PERRLA and EOMI.] ENT: Nares clear, no rhinorrhea or epistaxis. Mucous membranes moist. NECK: Supple. CHEST: [Clear to auscultation. No respiratory distress.] HEART: [Regular rate and rhythm]. No murmur heard. [Normal peripheral pulses.] ABDOMEN: [Soft, nondistended], [nontender], [No rigidity or guarding] Pfannenstiel incision with signs of induration, tenderness to palpation, cellulitis and purulence out of the right-sided incision site but no active dehiscence or bleeding. EXTREMITIES: Normal range of motion. [No edema.] SKIN: Warm, dry, no rash. NEURO: [No focal deficits]. Alert and oriented [x3.] PSYCH: [Normal mood and affect.] Course Vital Signs Vital signs: Vital Signs Temperature 36.5 C 12/11/24 22:19 Pulse Rate 63 12/11/24 22:19 Respiratory Rate 16 12/11/24 22:19 Blood Pressure 130/87 12/11/24 22:19 Pulse Oximetry 99 12/11/24 22:19 Oxygen Delivery Room Air 12/11/24 22:19 Temperature 36.5 C 12/11/24 22:19 Pulse Rate 66 12/12/24 05:14 Respiratory Rate 19 12/12/24 05:14 Blood Pressure 137/92 H 12/12/24 05:14 Pulse Oximetry 98 12/12/24 05:14 Oxygen Delivery Room Air 12/11/24 22:19 MDM - Female Genitourinary MDM Narrative Medical decision making narrative: 29-year-old female that is 8 days from a . Patient presents to the emergency department with complaints of purulent drainage, abdominal tenderness and redness around her Pfannenstiel incision. Patient had a section with her OBGYN doctor mahin. No fevers, nausea, vomiting, back pain. She notes pain with movement and she does have signs of cellulitis and induration over her incision site. Drainage with mucopurulent discharge on the right side but no dehiscence. Concern presently is for surgical site infection, cellulitis of the abdominal wall, intra-abdominal infection extending outward. Laboratory studies were obtained including CBC, BMP. Lactic acid, CRP and ESR ordered. She was started on vancomycin ceftriaxone and a CT of the abdomen pelvis with contrast was ordered for further delineation. CT scan results show large intra-abdominal abscess and fluid collection. She is leukocytosis of 16.3, hemoglobin of 8.0, slightly lower than her previous level several days ago. Normal platelet count. Electrolytes are unremarkable with normal renal function. Negative lactic acid. CRP largely elevated consistent with inflammatory or infectious process. Consult placed to Dr. Morgan awaiting discussion with her over the phone for plan of care potentially intervention verses radiology drainage verses antibiotics and watching. Patient's care was discussed with OBGYN Dr. Zendejas regarding heard abscess. Recommendations for consult to IR for drainage and admission for IV antibiotics to her service. Admission orders placed and patient made aware of plan and disposition for treatment. Medical Records Attestation: I reviewed the patient's medical records. Lab Data Attestation: I reviewed the patient's lab results. 12/12/24 06:22 12/12/24 06:22 Labs: Lab Results 12/12/24 Range/Units 06:22 WBC 16.3 H (4.5-10.0) K/mm3 RBC 2.99 L (4.2-5.4) M/mm3 Hgb 8.0 L (12.0-15.0) g/dL Hct 26.7 L (37.0-47.0) % MCV 89.3 (80-100) fl MCH 26.8 (26-34) pg MCHC 30.0 L (32-36) g/dl RDW 14.8 H (11.5-14.5) % Plt Count 355 D (150-375) k/mm3 MPV 8.2 (7.4-10.4) fl Immature Gran % (Auto) 1.0 H (0-0.5) % Neut % (Auto) 83.8 H (45.5-73.1) % Lymph % (Auto) 11.8 L (18.3-44.2) % [place] % (Auto) 2.6 (2.6-8.5) % Eos % (Auto) 0.6 (0-4.4) % Baso % (Auto) 0.2 (0.2-1.2) % Lymph # (Auto) 1.92 (0.9-3.2) K/mm3 [place] # (Auto) 0.4 (0.1-0.6) K/mm3 Eos # (Auto) 0.1 (0-0.3) K/mm3 Baso # (Auto) 0.0 (0.0-0.1) K/mm3 Abs Immat Gran (auto) 0.17 H (0.00-0.031) K/mm3 Absolute Neuts (auto) 13.6 H (1.3-6.7) K/mm3 Absolute Nucleated RBC 0.000 (0.0-0.012) K/mm3 Nucleated RBC % 0.0 (0.0-0.2) % ESR Pending Sodium 139 (137-145) mmol/L Potassium 3.5 (3.4-5.0) mmol/L Chloride 108 H (98-107) mmol/L Carbon Dioxide 23 (22-30) mmol/L Anion Gap 8 (4-12) mmol/L BUN 12 (7-17) mg/dL Creatinine 0.56 L (0.7-1.0) mg/dL Estim Creat Clear Calc 111 ml/min Estimated GFR > 60 (59 - ) Glucose 76 (65-110) mg/dL Lactic Acid 0.6 L (0.7-2.0) mmol/L Calcium 8.4 (8.4-10.2) mg/dL C-Reactive Protein 25.6 H (<1.0) mg/dL Imaging Data Attestation: I personally reviewed and interpreted this imaging study as follows: My impression: Impressions Abdomen/Pelvis CT 12/12/24 07:31 IMPRESSION: 1. 7.9 x 4.9 x 2.1 cm rim-enhancing fluid collection situated between the enlarged postgravid uterus and the bladder. The fluid collection appears contiguous with fluid in the endometrial canal and an intervening section wound along the anterior lower uterine segment. Differential would include hematoma or abscess in the appropriate clinical setting. 2. 1.7 cm rim-enhancing fluid collection along the superficial margin of the pelvic wall musculature at the right side of a section wound with similar differential of hematoma versus abscess. 3. Mild pulmonary edema small bilateral pleural effusions. 4. Symmetric appearance to the liver which could be due to phase of contrast or hepatic venous congestion. Critical Care Time Critical Care Time Critical Care Time: Yes Total Critical Care Time: 35 Discharge Plan Discharge Clinical Impression: Postoperative abscess of pelvis in female, Infection of caesarean section or perineal wound Patient Disposition: Still a Patient Condition: Stable Patient Language: Citizen Of [place] Prescriptions: No Action DHA 200 mg capsule 200 mg PO DAILY docusate sodium [Colace] 100 mg capsule 100 mg PO DAILY ferrous sulfate 325 mg (65 mg iron) tablet 325 mg PO DAILY hydrocodone-acetaminophen 5-325 mg Tablet 1 tablet PO Q3H PRN (Reason: Breakthrough Pain Rated 4-6) Qty: 20 0RF Follow-up/Referrals: UNKNOWN,DOCTOR [Primary Care Provider] - Time of Disposition: 08:02
[2024-12-12 06:42] LABS: Lactic Acid Reflex 0.6 mmol/L (0.7-2.0)
[2024-12-12 06:58] LABS: Anion Gap 8 mmol/L (4-12); Blood Urea Nitrogen 12 mg/dL (7-17); CRP 25.6 mg/dL (<1.0); Calcium 8.4 mg/dL (8.4-10.2); Carbon Dioxide 23 mmol/L (22-30); Chloride 108 mmol/L (98-107); Estimated CRCL calculation 111 ml/min; Estimated Glomerular Filt Rate > 60; Glucose 76 mg/dL (65-110); Potassium 3.5 mmol/L (3.4-5.0); Sodium 139 mmol/L (137-145)
--- OUTSIDE RECORDS SUMMARY | 2024-12-12 07:21 | XMS_ITS | Clinical Summary ---
Author Organization [facility] - [address] [address] Phone Care Team Providers Care Cloth Handler Name Role Phone Darinel Jameson MD Primary Care Provider [phone] Encounters Date Type Department Care Team Description 11/16/2024 3:29 PM CDT - 11/16/2024 11:59 PM CDT Hospital Encounter [facility] Jared Aldana [address] [place] [phone] Mateus Garcia MD Discharge Disposition: Home or Self Care 10/29/2024 3:33 PM CDT - 10/29/2024 11:59 PM CDT Hospital Encounter [facility] Jared Aldana [address] [place] [phone] Art Zendejas MD Discharge Disposition: Home or [...] Sex Assigned at Female 07/27/2024 9:36 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 NO: [id number] Referring MD: ART ZENDEJAS MD Site: [place] Trolley Operator: Argenis Palmer RDMS : 1995 Age: 29 ----- INDICATION ----- Screening Follow-Up CODING ----- Diagnoses Z3A.36: Weeks of gestation Z36.2: Encounter for other screening follow-up Procedures [id number]: Ultrasound, uterus, real time with image documentation, [...] 5 lb 10 oz EFW by Hadlock ([id number]) Extremities / Bony Struc Biometry: FL / [...] and date of were verified by the shrimp trawler prior to the exam IMPRESSION ----- Viable [...] Pat. Name:Sarah DINH Date:11/16/2024 3:36pm Pat. NO: [id number] :ART ZENDEJAS [facility]Argen[facility] Palmer RDMS :1995Age:29 ----- INDICATION ----- Screening Follow-Up CODING ----- Diagnoses Z3A.36: Weeks of gestation Z36.2: Encounter for other screeningfollow-up Procedures 16901: Ultrasound, uterus, real time withimage documentation, follow up, transabdominal approach per fetus HISTORY ----- OB History 2. Para 1 T1L1 METHOD ----- Transabdominal ultrasound examination ----- Joseph . Number of fetuses: 1 DATING ----- Cycle:regular cycle GA by prior [id number] w + 4 d REMINGTON by prior [...] 5 lb 10 oz EFW by Hadlock ([id number]) Extremities / Bony Struc Biometry: FL / [...] and date of were verified by the shrimp trawler prior tothe exam IMPRESSION ----- Viable at [...] - Final from Last 3 Months Insurance [employer] OPEN ACCESS Care Teams Cloth Handler Relationship Specialty Start Date End Date Darinel Jameson MD [facility] [place] [phone] PCP - General Family Practice 03/01/14
--- OUTSIDE RECORDS SUMMARY | 2024-12-12 07:21 | XMS_ITS | Clinical Summary ---
Author Organization [facility] Address [address] [place] [address] Care Team Providers Care Supervisor Wound Name Role Phone Darinel Jameson MD Primary Care Provider [phone] Allergies Active Allergy Reactions Criticality Noted Date [...] age to complete this topic Care Teams Supervisor Wound Relationship Specialty Start Date End Date Darinel Jameson MD [address] [place] [address] PCP - General Chief Solution Architect 03/25/16
--- OUTSIDE RECORDS SUMMARY | 2024-12-12 07:21 | XMS_ITS | Clinical Summary ---
Author Organization [facility] Address [address] [place] [address] Care Team Providers Care Senior Enlisted Advisor Name Role Phone Unavailable Primary Care Provider Unavailabl e Source Comments [facility],non-owned Affiliates and Associated Physician Practices is amultiple site organization consisting of ambulatory clinics and hospital sitesin [place], [place] and [place]. This disclosure is being madepursuant to the Care Everywhere program and may not contain all information available regarding this patient. Last updated 18.[facility] Allergies Active Allergy Reactions Criticality Noted Date [...] to complete this topic Insurance [facility] Address: [facility] [id number] [employer] SELF PAY NO INSURANCE Member Subscriber Plan / Payer (Ef fective for All Dates) Name:Tracy Grossman Member ID:Not on file Relation to Subscriber:Not on file Name:TRACY GROSSMAN Subscriber ID:Not on file (Home) Address: [address] [place] [address] [place] [address] Payer ID:Not on file Group ID:Not on file Type:Self Pay Address: [place], [place] Advance Directives Documents on File Type Date Recorded 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
[2024-12-12 08:14] LABS: Erythrocyte Sedimentation Rate > 140 mm/hr (0-20)
[2024-12-12] MEDS: VANCOMYCIN 1,250 MG/NS 250 ML 1,250 MG/250 ML BAG 166.67 MG IVPB ×2 (08:24→20:15)
[2024-12-12] MEDS: MORPHINE SULFATE (*CRX) 2 MG/ML INJ IV PUSH (08:28)
--- NOTE | 2024-12-12 09:53 | PC.NURSE ---
pt to floor @2820
[2024-12-12 09:54] VITALS: BMI 23.4
[2024-12-12] MEDS: SODIUM CHLORIDE 0.9% IV 1,000 ML 100 ML IV CONT ×2 (10:16→20:15)
--- NOTE | 2024-12-12 10:19 | PM.IMHP ---
H&P: HPI History of Present Illness Date/Time: 12/12/24 10:19 Chief Complaint: Leaking from incision Narrative: Patient is a 29 y/o s/p primary emergency for distress on 12/03. She presented to ED with c/o increase yellowish discharge from incision. She noticed smal amount Saturday and then noticed increase starting yesterday. She denied fevers or chills. Lochia normal. Denies nausea/vomiting. She has adequate pain control. Lochia mild. In the ED CT showed fluid collection 7.9 x4.9 x 2cm at lower uterine segment, and 1.7cm superficial collection at right of incision. WBC elevated at 16,h/h8/26.7 not significantly changed from post op h/h. Denies urinary symptoms. She denied headache prior to this morning, 12/05. She denies scotomata or RUQ pain. Review of Systems Review of Systems: All systems reviewed & are unremarkable except as noted in HPI and below Constitutional: Constitutional: Reports no additional constitutional complaints Eyes: Eyes: Reports other (denies scotomata) ENT: Reports system reviewed and no additional complaints, except as documented Cardiovascular: Cardiovascular: Reports no additional cardiovascular complaints Respiratory: Respiratory: Reports no additional respiratory complaints Gastrointestinal: Gastrointestinal: Reports no additional gastrointestinal complaints Genitourinary: Genitourinary: Reports no additional female genitourinary complaints Musculoskeletal: Musculoskeletal: Reports no additional musculoskeletal complaints Integumentary/Breasts: Skin/Breast: Reports system reviewed and no additional complaints, except as docu Neurologic: Reports system reviewed and no additional complaints, except as documented Psychiatric: Psychiatric: Reports no additional psychiatric complaints COUNTS INCLUDE 234 BEDS AT THE [facility] Past Medical History Medical History (Updated 12/12/24 @ 14:39 by Art Zendejas MD) Vaginal delivery Depression Fracture, ankle Sinus problem Bronchitis Surgical History Surgical History S/P wisdom tooth extraction Family History Family History Grandparent Breast cancer FH: mastectomy Carcinoma of colon Family history of arthritis Mother Family history of arthritis Father Family history of arthritis Mother Depression Sibling Depression Other Family history of heart disease in male family member before age 55 Social History Social History Smoking status: Never smoker Second hand tobacco smoke exposure: No Alcohol intake: former Substance use: never Do You Feel Safe in your Home?: Yes Lack of Transportation: No Lack of Food: Never True Current Housing: I Have Housing Concerned About Future Housing: No Difficulty Paying Gas/Electric Bills: No Difficulty Paying for Meds: No Currently Unemployed: No Education: Don't Know Difficulty w/ Childcare or Family Care: No Living arrangements: with family Gender identity (if verbalized by the patient): Female Spiritual care concerns: No Meds Home Medications and Allergies Home Medications ?Medication ?Instructions ?Recorded ?Confirmed ?Type docosahexaenoic acid 200 mg 200 mg PO DAILY 04/27/24 12/12/24 History capsule ( DHA) docusate sodium 100 mg capsule 100 mg PO DAILY 09/04/24 12/12/24 History (Colace) ferrous sulfate 325 mg (65 mg 325 mg PO DAILY 10/15/24 12/12/24 History iron) tablet hydrocodone 5 mg-acetaminophen 325 1 tablet PO Q3H PRN Breakthrough 12/04/24 12/12/24 Rx mg tablet Pain Rated 4-6 #20 tabs Allergies Allergy/AdvReac Type Severity Reaction Status Date / Time amoxicillin Allergy Mild HIVES Verified 12/12/24 11:11 polyethylene glycol 3350 Allergy Mild Hives Verified 12/12/24 11:11 (From Miralax) Vital Signs Vital Signs - 24 hr 12/11/24 22:19 12/12/24 03:34 12/12/24 05:14 Temperature 97.7 F Pulse Rate 63 84 66 Respiratory Rate 16 16 19 Blood Pressure 130/87 142/85 H 137/92 H Pulse Oximetry 99 98 98 Oxygen Delivery Room Air Exam Const: General: no acute distress Eyes: General: appearance normal, both eyes and all related structures Resp: Effort & Inspection: normal respiratory effort Auscultation: clear to auscultation bilaterally Cardio: Rate: regular rate Rhythm: regular rhythm GI: Other: incision intact, small amount of sl yellow tinge drainage from right fundus 14 week nontender Back/Spine/Pelvis: Back: no CVA tenderness Skin: General skin exam: no rashes or lesions noted Neuro: General: patient oriented x3 Cognition (Neuro): normal cognition Extrem: General: normal to inspection, no calf tenderness and pedal edema (2+) Psych: Mental Status: mental status grossly normal H&P: Results Labs Labs: Short CBC 12/12/24 Range/Units 06:22 WBC 16.3 H (4.5-10.0) K/mm3 Hgb 8.0 L (12.0-15.0) g/dL Hct 26.7 L (37.0-47.0) % Plt Count 355 D (150-375) k/mm3 [facility] 12/12/24 06:22 Sodium 139 Potassium 3.5 Chloride 108 H Carbon Dioxide 23 BUN 12 Creatinine 0.56 L Glucose 76 Calcium 8.4 Assessment and Plan Assessment and plan (1) Pelvic fluid collection: Code(s): R18.8 - Other ascites Status: Acute Assessment and Plan: Hematoma vs abscess. Continue IV antibiotics Discussed CT findings with radiologist. Fluid collection is more linear than a pocket, not thick enough for drain placement, more consistent with probable hematoma. No signs or symptoms of endometritis, no uterine fundal tenderness. Will assess for subcutaneous collection and culture. (2) Elevated blood pressure reading without diagnosis of hypertension: Code(s): R03.0 - Elevated blood-pressure reading, without diagnosis of hypertension Status: Acute Assessment and Plan: No signs or symptoms of pre-eclampsia. Normal PIH labs. Continue to monitor. Will add HCTZ which will help with edema. (3) Postoperative anemia: Code(s): D64.9 - Anemia, unspecified Status: Acute Assessment and Plan: Iron infusion. Recheck CBC in am.
--- NOTE | 2024-12-12 10:44 | ADMGEN ---
This patient, Tracy Dinh, was admitted to [facility] Surg Room 314-02. Patient/family oriented to hospital policies and general routines including ID bracelet, bed and alarms, visiting hours, pain management, procedures, bathroom and other care routines, personal items, smoking policy, room service/diet, and visiting hours. Information on how to activate the Rapid Response Team has been discussed. Patient/Family are encouraged to report perceived risks to care and to ask questions if they do not understand what they are told or what they should do. charge got report from rich in er.
[2024-12-12 10:53] VITALS: BP 130/77; PULSE 95; RESP 16; TEMP 36.8; O2SAT 100
[2024-12-12 11:04] LABS: Alanine Aminotransferase 23 U/L (6-35); Aspartate Amino Transferase 31 U/L (14-36)
[2024-12-12] MEDS: IRON SUCROSE COMPLEX 400 MG, IRON SUCROSE COMPLEX 100 MG in SODIUM CHLORIDE 0.9% IV 250 ML 78.57 MG IVPB (12:23)
[2024-12-12] MEDS: ACETAMINOPHEN 325 MG TABLET 650 MG PO ×2 (12:27→21:04)
[2024-12-12 13:54] VITALS: BP 141/82; PULSE 72; RESP 18; TEMP 36.9; O2SAT 97
[2024-12-12] MEDS: POLYSACCHARIDE IRON COMPLEX 150 MG CAPSULE PO (16:58)
[2024-12-12] MEDS: IBUPROFEN 600 MG TABLET PO (16:59)
[2024-12-12] MEDS: ceFAZolin 1 GM/NS 50 ML 1 GM/50 ML BAG IVPB (17:02)
[2024-12-12] MEDS: hydroCHLOROthiazide 25 MG TABLET PO (17:31)
[2024-12-12 21:05] VITALS: PULSE 63; RESP 20; O2SAT 95
[2024-12-12 21:31] VITALS: BP 127/84; PULSE 78; RESP 16; TEMP 37.5; O2SAT 96
[2024-12-13] VITALS (12 sets, daily range): BP systolic 122–145; BP diastolic 81–98; PULSE 53–78; RESP 15–20; TEMP 35.8–36.9; O2SAT 95–100
[2024-12-13] MEDS: ceFAZolin 1 GM/NS 50 ML 1 GM/50 ML BAG IVPB ×3 (01:36→16:20)
[2024-12-13 06:28] LABS: Basophils Percent Auto 0.1 % (0.2-1.2); Eosinophils Absolute Auto 0.1 K/mm3 (0-0.3); Eosinophils Percent Auto 0.9 % (0-4.4); Hematocrit 24.2 % (37.0-47.0); Hemoglobin 7.2 g/dL (12.0-15.0); Immature Granulocyte Absolute 0.37 K/mm3 (0.00-0.031); Immature Granulocyte Percent A 2.6 % (0-0.5); Lymphocytes Absolute Auto 1.46 K/mm3 (0.9-3.2); Lymphocytes Percent Auto 10.1 % (18.3-44.2); Mean Corpuscular HGB Conc 29.8 g/dl (32-36); Mean Corpuscular Hemoglobin 26.6 pg (26-34); Mean Corpuscular Volume 89.3 fl (80-100); Mean Platelet Volume 8.5 fl (7.4-10.4); Monocytes Absolute Auto 0.5 K/mm3 (0.1-0.6); Monocytes Percent Auto 3.5 % (2.6-8.5); Neutrophils Percent Auto 82.8 % (45.5-73.1); Nucleated Red Blood Cells Perc 0.3 % (0.0-0.2); Platelet Count Result 379 k/mm3 (150-375); Red Blood Count 2.71 M/mm3 (4.2-5.4); Red Cell Distribution Width 14.7 % (11.5-14.5); White Blood Count 14.5 K/mm3 (4.5-10.0)
[2024-12-13 06:32] LABS: Estimated CRCL calculation 137 ml/min; Estimated Glomerular Filt Rate > 60
[2024-12-13] MEDS: SODIUM CHLORIDE 0.9% IV 1,000 ML 100 ML IV CONT (06:59)
[2024-12-13] MEDS: HYDROcodone/acetaminophen (*CRX) 10-325 MG TABLET 1 TAB PO ×2 (07:53→21:31)
[2024-12-13] MEDS: VANCOMYCIN 1,250 MG/NS 250 ML 1,250 MG/250 ML BAG 166.67 MG IVPB (08:11)
[2024-12-13] MEDS: MULTIVIT/MIN/PREN/FOL AC/IRON TABLET 1 TAB PO (08:16)
[2024-12-13] MEDS: POLYSACCHARIDE IRON COMPLEX 150 MG CAPSULE PO ×2 (08:16→16:22)
[2024-12-13] MEDS: hydroCHLOROthiazide 25 MG TABLET PO (08:16)
[2024-12-13] MEDS: DOCUSATE SODIUM 100 MG CAPSULE PO (08:16)
[2024-12-13] MEDS: FERROUS SULFATE 325 MG TABLET DR BY MOUTH (08:16)
--- NOTE | 2024-12-13 09:14 | P.PNOB_ITS ---
OB - PN: Subj Subjective Date/time seen: 12/13/24 09:14 Interval history: She states adequate pain control, ambulating to BR without problems, tolerating diet. Foot swelling better. OB - PN: Obj Data Labs 12/13/24 06:12 12/13/24 06:12 Labs: Laboratory Results - last 24 hr 12/12/24 12/13/24 06:21 06:12 WBC 14.5 H RBC 2.71 L Hgb 7.2 L Hct 24.2 L MCV 89.3 MCH 26.6 MCHC 29.8 L RDW 14.7 H Plt Count 379 H MPV 8.5 Immature Gran % (Auto) 2.6 H Neut % (Auto) 82.8 H Lymph % (Auto) 10.1 L [place] % (Auto) 3.5 Eos % (Auto) 0.9 Baso % (Auto) 0.1 L Lymph # (Auto) 1.46 [place] # (Auto) 0.5 Eos # (Auto) 0.1 Baso # (Auto) 0.0 Abs Immat Gran (auto) 0.37 H Absolute Neuts (auto) 12.0 H Absolute Nucleated RBC 0.040 H Nucleated RBC % 0.3 H Creatinine 0.44 L Estim Creat Clear Calc 137 Estimated GFR > 60 AST 31 ALT 23 OB - PN A/P Assessment and Plan (1) Wound hematoma following section, : Code(s): O90.2 - Hematoma of obstetric wound Status: Acute Assessment and Plan: Incision probed, small bloody fluid on right, 1.5 separation, left incision probed, moderate amount bloody fluid obtained, tracked 3-4 cm to middle, areas irrigated with saline and iodofoam gauze placed. Erythematous area at left of incision marked. The fluid collection on CT most likely hematoma with the fluid and the decreased H/H. No signs of active bleeding. Wound culture sent. Will add Clindamycin. (2) Postoperative anemia: Code(s): D64.9 - Anemia, unspecified Status: Acute Assessment and Plan: Todays h/h c/w the hematoma on CT. No signs of active bleeding. Will continue to monitor. Will give [address] tomorrow. (3) Cellulitis, wound, post-operative: Code(s): T81.49XA - Infection following a procedure, other surgical site, initial encounter Status: Acute Assessment and Plan: WBC slightly decreased. Will add Clindamycin. Wound nurse consult. Daily CBC. Time Spent With Patient Time: Total time spent is greater than 50% in coordination of care (as documented) at patient's floor/unit and/or counseling patient: Exam 2 Const: General: comfortable and no acute distress Eyes: General: appearance normal, both eyes and all related structures Resp: Effort & Inspection: normal respiratory effort GI: Other: dressing removed, small drainage from right of incision, erythema and induration on left superior incision Skin: General skin exam: no rashes or lesions noted Neuro: General: patient oriented x3 Cognition (Neuro): normal cognition Extrem: General: normal to inspection, no calf tenderness and pedal edema (trace) Psych: Mental Status: mental status grossly normal
[2024-12-13 09:38] LABS: Basophils Percent Auto 0.2 % (0.2-1.2); Eosinophils Absolute Auto 0.1 K/mm3 (0-0.3); Eosinophils Percent Auto 0.7 % (0-4.4); Hematocrit 25.5 % (37.0-47.0); Hemoglobin 8.1 g/dL (12.0-15.0); Immature Granulocyte Absolute 0.45 K/mm3 (0.00-0.031); Immature Granulocyte Percent A 2.8 % (0-0.5); Lymphocytes Absolute Auto 1.58 K/mm3 (0.9-3.2); Lymphocytes Percent Auto 9.9 % (18.3-44.2); Mean Corpuscular HGB Conc 31.8 g/dl (32-36); Mean Corpuscular Hemoglobin 27.4 pg (26-34); Mean Corpuscular Volume 86.1 fl (80-100); Mean Platelet Volume 8.1 fl (7.4-10.4); Monocytes Absolute Auto 0.5 K/mm3 (0.1-0.6); Monocytes Percent Auto 2.9 % (2.6-8.5); Neutrophils Absolute Auto 13.4 K/mm3 (1.3-6.7); Neutrophils Percent Auto 83.5 % (45.5-73.1); Nucleated Red Blood Cells Perc 0.2 % (0.0-0.2); Platelet Count Result 414 k/mm3 (150-375); Red Blood Count 2.96 M/mm3 (4.2-5.4); Red Cell Distribution Width 14.7 % (11.5-14.5)
[2024-12-13] MEDS: CLINDAMYCIN 900 MG/D5W 50 ML 900 MG/50 ML PIGGYBACK 50 MG IVPB ×2 (10:43→17:34)
[2024-12-13] MEDS: TUBING, BLOOD PLUM PUMP TUBING 2 EACH XX (13:10)
[2024-12-13] MEDS: ACETAMINOPHEN 325 MG TABLET 650 MG PO (16:00)
[2024-12-13] MEDS: SODIUM CHLORIDE 0.9% IV 250 ML 30 ML IV CONT (17:37)
[2024-12-13 19:45] LABS: Vancomycin Trough 7.7 ug/mL (10.0-20.0)
[2024-12-13] MEDS: VANCOMYCIN 1,750 MG/NS 500 ML 1,750 MG/500 ML BAG 250 MG IVPB (21:03)
[2024-12-13 22:11] LABS: Hematocrit 31.9 % (37.0-47.0); Hemoglobin 10.3 g/dL (12.0-15.0); Mean Corpuscular HGB Conc 32.3 g/dl (32-36); Mean Corpuscular Hemoglobin 28.2 pg (26-34); Mean Corpuscular Volume 87.4 fl (80-100); Mean Platelet Volume 8.2 fl (7.4-10.4); Platelet Count Result 437 k/mm3 (150-375); Red Blood Count 3.65 M/mm3 (4.2-5.4); Red Cell Distribution Width 14.6 % (11.5-14.5)
[2024-12-14] MEDS: CLINDAMYCIN 900 MG/D5W 50 ML 900 MG/50 ML PIGGYBACK 50 MG IVPB ×3 (02:50→18:12)
[2024-12-14 05:47] VITALS: BP 132/84; PULSE 53; RESP 16; TEMP 36; O2SAT 95
[2024-12-14] MEDS: HYDROcodone/acetaminophen (*CRX) 10-325 MG TABLET 1 TAB PO (05:49)
[2024-12-14 06:14] LABS: Estimated CRCL calculation 111 ml/min; Estimated Glomerular Filt Rate > 60
[2024-12-14 06:21] LABS: Basophils Percent Auto 0.2 % (0.2-1.2); Eosinophils Absolute Auto 0.3 K/mm3 (0-0.3); Eosinophils Percent Auto 1.7 % (0-4.4); Hematocrit 30.1 % (37.0-47.0); Hemoglobin 9.8 g/dL (12.0-15.0); Immature Granulocyte Absolute 0.24 K/mm3 (0.00-0.031); Immature Granulocyte Percent A 1.7 % (0-0.5); Lymphocytes Absolute Auto 1.99 K/mm3 (0.9-3.2); Lymphocytes Percent Auto 13.8 % (18.3-44.2); Mean Corpuscular HGB Conc 32.6 g/dl (32-36); Mean Corpuscular Hemoglobin 28.1 pg (26-34); Mean Corpuscular Volume 86.2 fl (80-100); Mean Platelet Volume 8.4 fl (7.4-10.4); Monocytes Absolute Auto 0.9 K/mm3 (0.1-0.6); Monocytes Percent Auto 6.4 % (2.6-8.5); Neutrophils Percent Auto 76.2 % (45.5-73.1); Nucleated Red Blood Cells Perc 0.1 % (0.0-0.2); Platelet Count Result 446 k/mm3 (150-375); Red Blood Count 3.49 M/mm3 (4.2-5.4); White Blood Count 14.5 K/mm3 (4.5-10.0)
[2024-12-14] MEDS: ceFAZolin 1 GM/NS 50 ML 1 GM/50 ML BAG IVPB ×3 (08:00→17:23)
[2024-12-14] MEDS: FERROUS SULFATE 325 MG TABLET DR BY MOUTH (08:02)
[2024-12-14] MEDS: MULTIVIT/MIN/PREN/FOL AC/IRON TABLET 1 TAB PO (08:02)
[2024-12-14] MEDS: hydroCHLOROthiazide 25 MG TABLET PO (08:03)
[2024-12-14] MEDS: POLYSACCHARIDE IRON COMPLEX 150 MG CAPSULE PO ×2 (08:03→17:26)
[2024-12-14] MEDS: DOCUSATE SODIUM 100 MG CAPSULE PO ×2 (08:03→17:26)
[2024-12-14] MEDS: VANCOMYCIN 1,750 MG/NS 500 ML 1,750 MG/500 ML BAG 250 MG IVPB ×2 (08:58→20:12)
--- NOTE | 2024-12-14 13:12 | P.PNOB_ITS ---
OB - PN: Subj Subjective Date/time seen: 12/14/24 13:12 Interval history: Incision area feels better today. She is ambulating in room. Denies severe headache, scotomata or RUQ pain. OB - PN: Obj Data Labs 12/14/24 05:42 12/14/24 05:42 Labs: Laboratory Results - last 24 hr 12/13/24 12/13/24 12/13/24 09:30 18:56 22:06 WBC 17.0 H RBC 3.65 L Hgb 10.3 L Hct MCV MCH MCHC RDW Plt Count MPV Immature Gran % (Auto) Neut % (Auto) Lymph % (Auto) [place] % (Auto) Eos % (Auto) Baso % (Auto) Lymph # (Auto) [place] # (Auto) Eos # (Auto) Baso # (Auto) Abs Immat Gran (auto) Absolute Neuts (auto) Absolute Nucleated RBC Nucleated RBC % Creatinine Estim Creat Clear Calc Estimated GFR Vancomycin Trough 7.7 L Blood Type A Positive Antibody Screen Negative Crossmatch See Detail 12/13/24 12/13/24 12/14/24 22:06 22:06 05:42 WBC 14.5 H RBC 3.49 L Hgb Cancelled 9.8 L Hct 31.9 L Cancelled 30.1 L MCV 87.4 86.2 MCH 28.2 28.1 MCHC 32.3 32.6 RDW 14.6 H 15.0 H Plt Count 437 H 446 H MPV 8.2 8.4 Immature Gran % (Auto) 1.7 H Neut % (Auto) 76.2 H Lymph % (Auto) 13.8 L [place] % (Auto) 6.4 Eos % (Auto) 1.7 Baso % (Auto) 0.2 Lymph # (Auto) 1.99 [place] # (Auto) 0.9 H Eos # (Auto) 0.3 Baso # (Auto) 0.0 Abs Immat Gran (auto) 0.24 H Absolute Neuts (auto) 11.0 H Absolute Nucleated RBC 0.020 H Nucleated RBC % 0.1 Creatinine 0.56 L Estim Creat Clear Calc 111 Estimated GFR > 60 Vancomycin Trough Blood Type Antibody Screen Crossmatch Imaging Radiologist's impression: Impressions Abdomen/Pelvis CT 12/14/24 10:15 IMPRESSION: Interval decrease in size of a rim-enhancing fluid collection primarily within the left hemipelvis, as detailed above. Continuous within the endometrial cavity, best visualized on sagittal imaging is an additional focus of decreased attenuation without significant rim enhancement, largely stable in size, given changes in positioning and technique, within the presumed location of the section incision. OB - PN A/P Assessment and Plan (1) Wound hematoma following section, : Code(s): O90.2 - Hematoma of obstetric wound Status: Acute Assessment and Plan: Improving. No signs of abscess. Findings consistent with hematoma, not increasing. (2) Cellulitis, wound, post-operative: Code(s): T81.49XA - Infection following a procedure, other surgical site, initial encounter Status: Acute Assessment and Plan: Seroma. Improving. Continue antibiotics. Culture pending. Wound consult appreciated. (3) Elevated blood pressure reading without diagnosis of hypertension: Code(s): R03.0 - Elevated blood-pressure reading, without diagnosis of hypertension Status: Acute Assessment and Plan: Labile, mildly elevated, no severe PIH symptoms. Continue HCTZ. (4) Anemia: Code(s): D64.9 - Anemia, unspecified Status: Acute Assessment and Plan: Improving, s/p blood transfusion. Asymptomatic. Time Spent With Patient Time: Total time spent is greater than 50% in coordination of care (as documented) at patient's floor/unit and/or counseling patient: Review of Systems 2 Constitutional: Constitutional: Reports no additional constitutional complaints Eyes: Eyes: Reports no additional eye complaints Cardiovascular: Cardiovascular: Reports no additional cardiovascular complaints Respiratory: Respiratory: Reports no additional respiratory complaints Gastrointestinal: Gastrointestinal: Reports as per HPI Genitourinary: Genitourinary: Reports no additional female genitourinary complaints Musculoskeletal: Musculoskeletal: Reports no additional musculoskeletal complaints Neurologic: Reports system reviewed and no additional complaints, except as documented Psychiatric: Psychiatric: Reports no additional psychiatric complaints Exam 2 Const: General: comfortable and no acute distress Eyes: General: appearance normal, both eyes and all related structures Resp: Effort & Inspection: normal respiratory effort GI: Other: soft, minimal tenderness, incision less induration and erythema at incision, packing intact Skin: General skin exam: no rashes or lesions noted Neuro: General: patient oriented x3 Cognition (Neuro): normal cognition Extrem: General: normal to inspection, no calf tenderness and pedal edema (trace) Psych: Mental Status: mental status grossly normal
[2024-12-14 13:50] VITALS: BP 147/91; PULSE 58; RESP 20; TEMP 36.6; O2SAT 100
[2024-12-14] MEDS: ACETAMINOPHEN 325 MG TABLET 650 MG PO (15:15)
[2024-12-14] MEDS: SODIUM CHLORIDE 0.9% IV 1,000 ML 100 ML IV CONT (20:12)
[2024-12-14 21:05] VITALS: BP 135/93; PULSE 61; RESP 14; TEMP 36.4; O2SAT 98
[2024-12-15] MEDS: ceFAZolin 1 GM/NS 50 ML 1 GM/50 ML BAG IVPB (01:50)
[2024-12-15] MEDS: CLINDAMYCIN 900 MG/D5W 50 ML 900 MG/50 ML PIGGYBACK 50 MG IVPB (02:55)
[2024-12-15 05:51] VITALS: BP 139/89; PULSE 55; RESP 16; TEMP 36.3; O2SAT 97
[2024-12-15] MEDS: ACETAMINOPHEN 325 MG TABLET 650 MG PO ×2 (06:23→13:57)
[2024-12-15 07:37] LABS: Basophils Percent Auto 0.3 % (0.2-1.2); Eosinophils Absolute Auto 0.3 K/mm3 (0-0.3); Eosinophils Percent Auto 2.5 % (0-4.4); Hematocrit 32.2 % (37.0-47.0); Immature Granulocyte Absolute 0.19 K/mm3 (0.00-0.031); Immature Granulocyte Percent A 1.6 % (0-0.5); Lymphocytes Absolute Auto 1.38 K/mm3 (0.9-3.2); Lymphocytes Percent Auto 11.4 % (18.3-44.2); Mean Corpuscular HGB Conc 31.1 g/dl (32-36); Mean Corpuscular Hemoglobin 27.7 pg (26-34); Mean Corpuscular Volume 89.2 fl (80-100); Mean Platelet Volume 8.3 fl (7.4-10.4); Monocytes Absolute Auto 0.6 K/mm3 (0.1-0.6); Monocytes Percent Auto 4.6 % (2.6-8.5); Neutrophils Absolute Auto 9.7 K/mm3 (1.3-6.7); Neutrophils Percent Auto 79.6 % (45.5-73.1); Platelet Count Result 481 k/mm3 (150-375); Red Blood Count 3.61 M/mm3 (4.2-5.4); Red Cell Distribution Width 15.1 % (11.5-14.5); White Blood Count 12.1 K/mm3 (4.5-10.0)
[2024-12-15 07:46] LABS: Estimated CRCL calculation 112 ml/min; Estimated Glomerular Filt Rate > 60
[2024-12-15 08:00] VITALS: PULSE 58; O2SAT 97
[2024-12-15 08:06] LABS: Vancomycin Trough 8.1 ug/mL (10.0-20.0)
[2024-12-15] MEDS: FERROUS SULFATE 325 MG TABLET DR BY MOUTH (09:47)
[2024-12-15] MEDS: POLYSACCHARIDE IRON COMPLEX 150 MG CAPSULE PO (09:47)
[2024-12-15] MEDS: DOCUSATE SODIUM 100 MG CAPSULE PO ×2 (09:48→17:46)
[2024-12-15] MEDS: MULTIVIT/MIN/PREN/FOL AC/IRON TABLET 1 TAB PO (09:48)
[2024-12-15] MEDS: CLINDAMYCIN HCL 150 MG CAP 300 MG PO ×2 (13:57→20:22)
[2024-12-15] MEDS: CEPHALEXIN 500 MG CAPSULE PO ×2 (13:57→20:22)
[2024-12-15 14:00] VITALS: BP 162/87; PULSE 55; RESP 16; TEMP 36.1; O2SAT 98
[2024-12-15 15:23] VITALS: BP 157/92
--- NOTE | 2024-12-15 15:48 | PM.OBPNVD ---
OB - PN: Subj Subjective Date/time seen: 12/15/24 0835 Interval history: Incision area feels better today. She is ambulating in room. Denies severe headache, scotomata or RUQ pain. OB - PN: Obj Data Labs 12/15/24 07:30 12/15/24 07:30 Labs: Laboratory Results - last 24 hr 12/15/24 07:30 WBC 12.1 H RBC 3.61 L Hgb 10.0 L Hct 32.2 L MCV 89.2 MCH 27.7 MCHC 31.1 L RDW 15.1 H Plt Count 481 H MPV 8.3 Immature Gran % (Auto) 1.6 H Neut % (Auto) 79.6 H Lymph % (Auto) 11.4 L [place] % (Auto) 4.6 Eos % (Auto) 2.5 Baso % (Auto) 0.3 Lymph # (Auto) 1.38 [place] # (Auto) 0.6 Eos # (Auto) 0.3 Baso # (Auto) 0.0 Abs Immat Gran (auto) 0.19 H Absolute Neuts (auto) 9.7 H Absolute Nucleated RBC 0.000 Nucleated RBC % 0.0 Creatinine 0.55 L Estim Creat Clear Calc 112 Estimated GFR > 60 Vancomycin Trough 8.1 L OB - PN A/P Assessment and Plan (1) Wound hematoma following section, : Code(s): O90.2 - Hematoma of obstetric wound Status: Acute Assessment and Plan: Improving. Preliminary culture no growth. D/C IV antibiotics. Start oral. (2) Cellulitis, wound, post-operative: Code(s): T81.49XA - Infection following a procedure, other surgical site, initial encounter Status: Acute Assessment and Plan: Seroma. Improving. Continue antibiotics. Culture pending. Wound consult appreciated. (3) Elevated blood pressure reading without diagnosis of hypertension: Code(s): R03.0 - Elevated blood-pressure reading, without diagnosis of hypertension Status: Acute Assessment and Plan: Discontinue HCTZ. Initially ordered Labetolol. Then switched to Procardia. (4) Anemia: Code(s): D64.9 - Anemia, unspecified Status: Acute Assessment and Plan: H/H improving. Time Spent With Patient Time: Total time spent is greater than 50% in coordination of care (as documented) at patient's floor/unit and/or counseling patient: Exam Const: General: comfortable and no acute distress Eyes: General: appearance normal, both eyes and all related structures Resp: Effort & Inspection: normal respiratory effort GI: Other: soft, minimal tenderness, incision less induration and erythema at incision, packing intact Skin: General skin exam: no rashes or lesions noted Neuro: General: patient oriented x3 Cognition (Neuro): normal cognition Extrem: General: normal to inspection and no calf tenderness Psych: Mental Status: mental status grossly normal
[2024-12-15] MEDS: NIFEdipine 30 MG TAB.ER.24 PO (17:45)
[2024-12-15] MEDS: HYDROcodone/acetaminophen (*CRX) 5-325 MG TABLET 1 TAB PO (17:45)
[2024-12-15 19:59] VITALS: BP 129/91; PULSE 58; RESP 16; TEMP 36.3; O2SAT 96
[2024-12-16] MEDS: ACETAMINOPHEN 325 MG TABLET 650 MG PO ×2 (05:37→10:33)
[2024-12-16] MEDS: CLINDAMYCIN HCL 150 MG CAP 300 MG PO (05:38)
[2024-12-16] MEDS: CEPHALEXIN 500 MG CAPSULE PO (05:38)
[2024-12-16 06:00] VITALS: BP 118/77; PULSE 81; RESP 16; TEMP 36.7; O2SAT 96
[2024-12-16 08:28] VITALS: BP 129/92; PULSE 86
[2024-12-16] MEDS: MULTIVIT/MIN/PREN/FOL AC/IRON TABLET 1 TAB PO (08:29)
[2024-12-16] MEDS: NIFEdipine 30 MG TAB.ER.24 PO (08:29)
[2024-12-16] MEDS: DOCUSATE SODIUM 100 MG CAPSULE PO (08:29)
[2024-12-16] MEDS: FERROUS SULFATE 325 MG TABLET DR BY MOUTH (08:30)
--- NOTE | 2024-12-16 11:30 | P.PNOB_ITS ---
OB - PN: Subj Subjective Date/time seen: 12/16/24 11:30 Interval history: She states she feels fine. Had intermittent headache, 2-/10. Tylenol helps. Hrs incision pain is controlled. No leg pain. Minimal lochia. OB - PN: Obj Data Labs 12/15/24 07:30 12/15/24 07:30 OB - PN A/P Assessment and Plan (1) Wound hematoma following section, : Code(s): O90.2 - Hematoma of obstetric wound Status: Acute Assessment and Plan: Improving. Culture no growth. Doing well on oral medication. comfortable with dressing change. (2) Elevated blood pressure reading without diagnosis of hypertension: Code(s): R03.0 - Elevated blood-pressure reading, without diagnosis of hypertension Status: Acute Assessment and Plan: Improving. No PIH symptoms. Continue Procardia. Will have her take blood pressures at home. (3) Anemia: Code(s): D64.9 - Anemia, unspecified Status: Acute Assessment and Plan: Continue oral iron twice a day. Time Spent With Patient Time: Total time spent is greater than 50% in coordination of care (as documented) at patient's floor/unit and/or counseling patient: Review of Systems 2 Constitutional: Constitutional: Reports no additional constitutional complaints Eyes: Eyes: Reports no additional eye complaints Cardiovascular: Cardiovascular: Reports no additional cardiovascular complaints Respiratory: Respiratory: Reports no additional respiratory complaints Gastrointestinal: Gastrointestinal: Reports as per HPI Genitourinary: Genitourinary: Reports no additional female genitourinary complaints Musculoskeletal: Musculoskeletal: Reports no additional musculoskeletal complaints Neurologic: Reports system reviewed and no additional complaints, except as documented Psychiatric: Psychiatric: Reports no additional psychiatric complaints Exam 2 Const: General: comfortable and no acute distress Eyes: General: appearance normal, both eyes and all related structures Resp: Effort & Inspection: normal respiratory effort GI: Other: soft, minimal tenderness, decreasing erythema and induration at incision Skin: General skin exam: no rashes or lesions noted Neuro: General: patient oriented x3 Cognition (Neuro): normal cognition Extrem: General: normal to inspection (mild pedal edema) and no calf tenderness Psych: Mental Status: mental status grossly normal
--- NOTE | 2024-12-16 11:48 | PM.DS ---
DS: Admitting Diagnosis Discharge Date 12/16/24 Admitting Diagnosis Pelvic fluid collection DS: Discharge Diagnosis Discharge Diagnosis (1) Post-op pain: Code(s): G89.18 - Other acute postprocedural pain Status: Acute (2) Wound hematoma following section, : Code(s): O90.2 - Hematoma of obstetric wound Status: Acute Plan Wound hematoma hypertension. Anemia DS: Summary Hospital Course Hospital Course: She was admitted and started on IV antibiotics. She was also noted to be anemic, not significant change from prior discharge. She had iron infusion started. The next day hemoglobin decreased and she had 2 units of PRBCs, hemoglobin increased to 10/30. She did not have any hypovolemic symptoms during hospital stay. There was drainage from incision on admission. Incision was probed and blood tinged fluid obtained. Consistent with wound hematoma. Wound was cultured which negative growth. She had another CT after admission and there was no increase in collection and the findings were consistent with hematoma, stable in pelvis and not abscess. Wound nurse consulted and packed and educated her spouse on dressing change. IV antibiotics were discontinued and she was switched to oral after preliminary neg culture results. No fevers on oral medications. She continued to have clinical improvement. She remained afebrile throughout admission. Her blood pressures were elevated mildly since admission. PIH labs negative. She did not have any severe signs or symptoms of hypertension. Blood pressures continued elevated even with pain control. She was started on Procardia. Blood pressures did improve. Time Spent with Patient Time attestation: Total time spent providing and/or coordinating discharge services: Exam Const: General: comfortable and no acute distress Eyes: General: appearance normal, both eyes and all related structures Resp: Effort & Inspection: normal respiratory effort GI: Other: soft, minimal tenderness, decreasing erythema and induration at incision Skin: General skin exam: no rashes or lesions noted Neuro: General: patient oriented x3 Cognition (Neuro): normal cognition Extrem: General: normal to inspection (mild pedal edema) and no calf tenderness Psych: Mental Status: mental status grossly normal DS: Data Data Completed and Pending Completed studies during hospitalization: Abd pelvix ct x2 2 unit blood transfusion iron infusion Labs on day of discharge: Preliminary micro results at discharge 12/13/24 09:08 Anaerobic Culture - Preliminary Incision Discharge Plan Discharge Attending physician on discharge: Art Zendejas Consulting providers: Yaneli Billy; Brett Odonnell; Silvana Matthews Discharging Clinician: Art Zendejas Anticipated Discharge Date/Time: 12/16/24 12:00 Patient Disposition: Home Activity: may shower, no driving, follow weight bearing status and pelvic rest Diet: regular Wound Care Instructions: other - see discharge instructions Discharge Instructions: Call for blood pressures persistent 155 or 100. Call for severe headache, white spots in vision, persistent right upper quadrant pain. Wound care instructions Gently wash wounds with soap and water which can be done in the shower. Gently pack both open areas with 1/4 inch Iodoform gauze rope. Cover with dry gauze and an ABD pad Secure in place with medipore tape. Packing to be changed once a day, gauze to be changed as needed to control exudate. Patient Instructions: Antibiotic Form Patient Language: Nepalese Stand Alone Forms: General Discharge Information Follow-up/Referrals: Art Zendejas MD [Physician] - 12/22/24 8:30 am Discharge Medications: New cephalexin 500 mg Capsule 500 mg PO Q8HR Qty: 30 0RF docusate sodium 100 mg Capsule 100 mg PO BID Qty: 60 0RF nifedipine [Procardia XL] 30 mg Tablet Extended Release 24hr 30 mg PO DAILY Qty: 30 0RF hydrocodone-acetaminophen 5-325 mg Tablet 1 tablet PO Q4H PRN (Reason: Pain Rated 4-6) Qty: 30 0RF Continued DHA 200 mg capsule 200 mg PO DAILY ferrous sulfate 325 mg (65 mg iron) tablet 325 mg PO DAILY Discontinued docusate sodium [Colace] 100 mg capsule 100 mg PO DAILY hydrocodone-acetaminophen 5-325 mg Tablet 1 tablet PO Q3H PRN (Reason: Breakthrough Pain Rated 4-6) Qty: 20 0RF Date of admission: 12/12/24 08:03 Primary Care Provider: Gisell,Darinel Calvin Admitting Provider: Art Zendejas Attending physician on admission: Art Zendejas Condition: Stable
== END 2024-12-16 13:09 | disposition home or self-care (01) | DRG 776 ==
LOC: ANHED 12-12 08:02 → ANH3MEDSUR 12-12 09:24
PROVIDERS: Admitting Provider Obstetrics & Gynecology; Emergency Provider Student in an Organized Health Care Education/Training Program; PCP Family Medicine; Visit Provider Obstetrics & Gynecology
DX: O86.00 Infection of obstetric surgical wound, unspecified (principal); O90.2 Hematoma of obstetric wound; O16.5 Unspecified maternal hypertension, complicating the puerperium; R03.0 Elevated blood-pressure reading, without diagnosis of hypertension; O90.81 Anemia of the puerperium; D64.9 Anemia, unspecified; O99.345 Other mental disorders complicating the puerperium; F32.A Depression, unspecified
CPT/HCPCS: 36415; 36430; 74177; 80048; 80202; 82565; 83605; 84450; 84460; 85025; 85027; 85652; 86140; 86850; 86900; 86901; 86923; 87070; 87075; 87205; 96365; 96367; 96375; 99285; A9270; J0690; J0696; J1756; J2270; J3370; J7030; J7050; P9016; Q9967

== ENCOUNTER 2025-03-25 08:53 | Emergency (ER) | payer OTHER, SELFPAY ==
[2025-03-25 09:13] VITALS: BP 113/80; PULSE 94; RESP 16; TEMP 36.3; O2SAT 98
[2025-03-25 09:25] LABS: EDSTREPNEGPOS1 Positive (Negative)
--- NOTE | 2025-03-25 09:36 | ED.URI ---
HPI - URI/Sore Throat General Chief Complaint: Upper Respiratory Infection Stated Complaint: SORE THROAT/FEVER Time Seen by Provider: 03/25/25 09:36 History of Present Illness HPI Narrative: 29-year-old female presented for complaint of sore throat, headache, nausea. Onset 2 days. Endorses painful swallow and white patches on tonsils. History of strep infections. Penicillin allergy. Related Data Home Medications ?Medication ?Instructions ?Recorded ?Confirmed ?Last Taken ?Type docosahexaenoic acid 200 mg 200 mg PO DAILY 04/27/24 03/25/25 12/10/24 History capsule ( DHA) ferrous sulfate 325 mg (65 mg 325 mg PO DAILY 10/15/24 01/15/25 12/10/24 History iron) tablet Allergies Allergy/AdvReac Type Severity Reaction Status Date / Time vancomycin Allergy Intermediate Swelling Verified 03/25/25 09:06 amoxicillin Allergy Mild HIVES Verified 03/25/25 09:06 polyethylene glycol 3350 Allergy Mild Hives Verified 03/25/25 09:06 (From [employer]) Review of Systems Review of Systems: CONSTITUTIONAL: Denies body aches, fever, chills, or sweats. EYES: Denies visual changes, redness, or discharge. ENT: reports sore throat Denies rhinorrhea, congestion, or otalgia. CARDIOVASCULAR: Denies chest pain, palpitations, or edema. RESPIRATORY: Denies dyspnea. GASTROINTESTINAL: Denies abdominal pain, nausea, vomiting, or diarrhea. SKIN: Denies rash NEUROLOGIC: reports headache PMFSH Past Medical History Medical History Vaginal delivery Depression Fracture, ankle Sinus problem Bronchitis Surgical History Surgical History S/P wisdom tooth extraction Family History Family History Grandparent Breast cancer FH: mastectomy Carcinoma of colon Family history of arthritis Mother Family history of arthritis Father Family history of arthritis Mother Depression Sibling Depression Other Family history of heart disease in male family member before age 55 Social History Social History Smoking status: Never smoker Second hand tobacco smoke exposure: No Alcohol intake: former Substance use: never Do You Feel Safe in your Home?: Yes Lack of Transportation: No Lack of Food: Never True Current Housing: I Have Housing Concerned About Future Housing: No Difficulty Paying Gas/Electric Bills: No Difficulty Paying for Meds: No Currently Unemployed: No Education: Don't Know Difficulty w/ Childcare or Family Care: No Living arrangements: with family Gender identity (if verbalized by the patient): Female Spiritual care concerns: No Exam Narrative: GENERAL: Ill-appearing, no acute distress. EYES: conjunctivae clear ENT: Mucous membranes moist. TM pearly reyes with normal light reflex bilaterally; no tragal tenderness. Oropharynx erythematous without lesions. Tonsils enlarged 2+ with exudate. No drooling, no hoarseness, no trismus, uvula midline. No tripod positioning, hot potato voice, or soft palate swelling. NECK: Supple. No lymphadenopathy CHEST: Clear to auscultation, breath sounds equal. No respiratory distress, speaks in full sentences. HEART: Regular rate and rhythm. No murmur heard. SKIN: Warm, dry, no rash. NEURO: Alert and oriented x3. Course Course Emergency Course: Patient is aware of diagnosis, understands and agrees to treatment plan. Anticipatory guidance given. Patient agrees to follow-up as directed and is aware of reasons to seek care at the emergency department. Portions of this record may have been created with voice recognition software Level of Care: Express Care Visit Vital Signs Vital signs: Vital Signs Temperature 97.3 F L 03/25/25 09:13 Pulse Rate 94 03/25/25 09:13 Respiratory Rate 16 03/25/25 09:13 Blood Pressure 113/80 03/25/25 09:13 Pulse Oximetry 98 03/25/25 09:13 Temperature 97.3 F L 03/25/25 09:13 Pulse Rate 94 03/25/25 09:13 Respiratory Rate 16 03/25/25 09:13 Blood Pressure 113/80 03/25/25 09:13 Pulse Oximetry 98 03/25/25 09:13 MDM - URI/Sore Throat MDM Narrative Medical decision making narrative: POS strep result reviewed with pt. Advise supportive treatments. Patient is appropriate for outpatient treatment and follow-up. Differential Diagnosis Differential diagnosis: Likely upper respiratory infection, viral infection and pharyngitis Lab Data Labs: Lab Results 03/25/25 Range/Units 09:23 POC Grp A Strep Screen Positive (Negative) Discharge Plan Discharge Clinical Impression: Strep pharyngitis Patient Disposition: Home Condition: Stable Instructions: Antibiotic Form, Strep Throat (ED) Additional Instructions: - Take the antibiotic as directed. Fever and sore throat typically resolve within one to three days. Most patients can return to work, school, or daycare after 12 to 24 hours of antibiotic therapy, provided you are fever free and otherwise well. -Eat and drink things that are easy to swallow, like soft foods, cool liquids, tea with honey, or popsicles . -Salt water gargles and/or may use topical anesthetic ( Chloraseptic spray) or lozenges to relieve dryness or throat pain -Alternate Tylenol and ibuprofen as needed for pain and fever as directed. -Frequent hand washing or hand maintenance construction helper is one of the best ways to prevent spread of infection. Throw away the toothbrush after 24hours of antibiotic. -Follow up with primary care provider in 2-3 days if condition is not improving -Go to the ER if you have trouble breathing, cannot drink enough fluids, have muffled voice or drooling, difficulty opening your mouth, or severe swelling. Patient Language: Bengali Prescriptions: New cephalexin 500 mg capsule 500 mg PO Q12H 10 Days Qty: 20 0RF No Action DHA 200 mg capsule 200 mg PO DAILY ferrous sulfate 325 mg (65 mg iron) tablet 325 mg PO DAILY Follow-up/Referrals: Gisell,Darinel Calvin MD [Primary Care Provider, Unknown] Time of Disposition: 09:41
== END 2025-03-25 09:45 | disposition home or self-care (01) ==
PROVIDERS: Emergency Provider Nurse Practitioner Family; PCP Family Medicine
DX: J02.0 Streptococcal pharyngitis (principal)
CPT/HCPCS: 87880; 99213; G0463